=== PATIENT | female | born 1995 | race Caucasian/White ===

== ENCOUNTER 2020-09-20 15:43 | Outpatient (REF) | payer OTHER, MEDICAID, SELFPAY ==
--- NOTE | 2020-09-20 | PFT_ITS ---
Forced vital capacity and FEV1 are normal. [id number] and MVV are also normal. Post bronchodilator therapy, no change except slight decrease in [id number]. Total lung capacity and residual volume normal. Diffusion capacity normal. CONCLUSION: Normal pulmonary function test. No evidence of obstructive or restrictive pulmonary disease. MD RY Jefferson/MODL / [id number]
== END 2020-09-20 15:44 | disposition home or self-care (01) ==
LOC: HO.RESP 15:43
PROVIDERS: PCP Internal Medicine; Visit Provider Internal Medicine
DX: R05 Cough (principal)
CPT/HCPCS: 94060; 94727; 94729

== ENCOUNTER 2020-11-13 10:54 | Outpatient (REF) | payer OTHER, SELFPAY ==
--- NOTE | ~2020-11-13 | XR_ITS ---
EXAMINATION: XR CHEST CLINICAL INFORMATION: Cough. COMPARISON: Chest radiograph dated 06/09/2019. TECHNIQUE: 2 views of the chest were obtained. FINDINGS: The lungs are clear. The cardiomediastinal silhouette is normal in size. There is no pleural effusion or pneumothorax. No acute osseous abnormality. XR/XR chest 2V IMPRESSION: No acute cardiopulmonary findings.
== END 2020-11-13 10:55 | disposition home or self-care (01) ==
LOC: HO.XRAY 10:54
PROVIDERS: PCP Internal Medicine; Visit Provider Internal Medicine
DX: R05 Cough (principal)
CPT/HCPCS: 71046

== ENCOUNTER 2023-06-14 16:52 | Outpatient (REF) | payer OTHER, SELFPAY ==
[2023-06-15 21:19] LABS: C. trachomatis RNA TMA NOT DETECTED (NOT DETECTED); Candida glabrata RNA NOT DETECTED (NOT DETECTED); Candida species RNA NOT DETECTED (NOT DETECTED); N. gonorrhoeae RNA TMA NOT DETECTED (NOT DETECTED); Trichomonas vaginalis RNA NOT DETECTED (NOT DETECTED)
== END 2023-06-14 16:53 | disposition home or self-care (01) ==
LOC: HO.HHCLNP 16:52
PROVIDERS: Visit Provider Advanced Practice Midwife
DX: N89.8 Other specified noninflammatory disorders of vagina (principal)
CPT/HCPCS: 36415; 81513; 87481; 87491; 87591; 87661

== ENCOUNTER 2023-06-29 14:50 | Outpatient (REF) | payer OTHER, SELFPAY ==
--- NOTE | ~2023-06-29 | US_ITS ---
EXAMINATION: US PELVIS CLINICAL INFORMATION: IUD malposition on CAT scan COMPARISON: None available. TECHNIQUE: Ultrasound of the pelvis is performed using both transabdominal and transvaginal transducers along with Doppler. Transvaginal imaging is performed due to inadequate visualization transabdominally. FINDINGS: Uterus: The uterus is anteverted and measures 7.5 x 3.5 x 4.0 cm. An IUD is positioned low in the endometrial canal with most of its length in the cervix. The double wall endometrial thickness is 4 mm. The uterus is smooth in contour and has normal myometrial echogenicity. A small 0.8 cm uterine fibroid is noted Adnexa: Both ovaries are visualized. There is normal color flow to the adnexa. There is no ovarian torsion. There is no pelvic ascites or fluid collection. Right ovary measures 3.3 x 1.9 x 1.8 cm for a volume of 5.9 mL and includes a 1.6 cm cyst with septation. Left ovary measures 3.7 x 2.1 x 2.8 cm for a volume of 11.2 mL which includes a 1.5 cm cyst. US/US pelvic and transvaginal IMPRESSION: 1. IUD is positioned low in the endometrial canal with most of its length in the cervix. 2. Small uterine fibroid. 3. Bilateral benign appearing ovarian cysts. No follow-up is needed.
== END 2023-06-29 14:51 | disposition home or self-care (01) ==
LOC: HO.US 14:50
PROVIDERS: PCP Student in an Organized Health Care Education/Training Program; Visit Provider Advanced Practice Midwife
DX: T83.32XD Displacement of intrauterine contraceptive device, subsequent encounter (principal)
CPT/HCPCS: 76830; 76856

== ENCOUNTER 2023-07-28 14:49 | Outpatient (AMB) | payer OTHER, SELFPAY ==
--- NOTE | 2023-07-28 14:55 | A.OFFVIS_ITS ---
Intake Vital Signs 07/28/23 14:59 Height 5 ft 2 in Weight 145 lb BMI 26.5 BP 93/69 Blood Pressure Location Lt brachial Position Sitting Pulse 78 Pulse Source Pulse Oximeter Pulse Oximetry (%) 99 Oxygen Delivery Method Room Air Intake Visit Reasons: MELENA Vp Home Health Required: Yes Vp Home Health Language: Serbian Information Interpreted: non-clinical & clinical Accompanied by: Self / Same As Patient Allergies No Known Allergies Allergy (Verified 07/28/23 14:55) HPI MELENA HPI Details 27-year-old female with no significant p ast medical history is here today for initial consultation. Patient was sent to us by her PCP. Patient had couple episodes of blood in her stool after having bowel movement. Patient also reports rectal discomfort. Reports to be constipated. Moving her bowels only every couple days. Patient also reports postprandial abdominal bloating. Denies any abdominal pain or discomfort. Denies any tenderness anywhere in her abdomen. Denies any dyspepsia, dysphagia or odynophagia. Patient denies any melena, unintentional weight loss or ribbon like stools. Patient denies any diarrhea. No nausea or vomiting. [facility] Social History (Updated 07/28/23 @ 14:57 by Christy Doherty MA) Household Members: Family Alcohol intake: never Patient Tobacco Use Status: Never used Tobacco Review of Systems Const Denies weight gain and Denies weight loss ENT Reports no additional complaints, Denies dysphagia and Denies odynophagia Card Reports no additional complaints Resp Reports no additional complaints GI Denies abdominal pain, Denies belching, Denies melena, Denies bloating, Denies change in bowel habits, Reports constipation, Denies dysphagia, Denies excessive flatus, Denies dyspepsia, Denies heartburn, Denies diarrhea, Denies loose stools, Reports nausea, Denies odynophagia and Denies vomiting Reports no additional complaints Musc Reports no additional complaints Neuro Reports no additional complaints Psych Reports no additional complaints Endo Reports no additional complaints Physical Exam Vital Signs: Last Vital Signs Pulse 78 07/28/23 14:59 BP 93/69 07/28/23 14:59 Pulse Ox 99 07/28/23 14:59 Oxygen Delivery Method Room Air 07/28/23 14:59 BMI result Body Mass Index 26.5 Const General: healthy appearing, no acute distress and well developed Nutritional Appearance: well nourished Orientation/consciousness: patient oriented x3 Resp Effort & Inspection: normal respiratory effort, able to speak in complete sentences, no tracheal deviation and symmetric chest movement Auscultation: clear to auscultation bilaterally Cardio Rate: regular rate GI Inspection: Yes normal to inspection and No distended Palpation (GI): Soft to palpation, not firm, nontender and No hepatosplenomegaly present Auscultation: normal bowel sounds General: Yes no CVA tenderness Back/Spine/Pelvis Back: no CVA tenderness Skin General skin exam: elasticity normal, turgor normal and dry skin Neuro General: patient oriented x3 Psych Appearance: grossly normal Mental Status: mental status grossly normal Assessment & Plan Assessment & Plan (1) Constipation: Code(s): K59.00 - Constipation, unspecified Qualifiers: Constipation type: slow transit constipation Qualified Code(s): K59.01 - Slow transit constipation (2) Rectal bleed: Code(s): K62.5 - Hemorrhage of anus and rectum Plan Discussed with patient high-fiber diet as well as trying to drink more fluids. Patient can start taking MiraLax daily and take Colace in the evening. Will send script for hemorrhoid cream for her. Patient was encouraged to also try Sitz baths with Epsom salts. Blood work reviewed from her PCP and patient is not anemic. No family history of colorectal cancer. Will see patient in 5 weeks, if she continues to have rectal bleed and rectal discomfort we will send her for colonoscopy. Patient is agreeable to this plan and verbalizes understanding of instructions. She was given the opportunity to ask questions and all questions answered. Thank you for allowing me to participate in her care Medications: New docusate sodium 200 mg (2 x 100 mg) PO BEDTIME 180 caps 3RF K59.00 - Constipation, unspecified polyethylene glycol 3350 (Miralax) 17 grams PO DAILY 510 grams 2RF hydrocortisone 2.5% (Proctosol HC) 1 appl HI BID-QID PRN 30 grams 2RF hemorrhoids K64.9 - Unspecified hemorrhoids Coding Level of Care Code New Pt Level 3 (39647) Diagnoses Slow transit constipation K59.01 Constipation type: slow transit constipation Rectal bleed K62.5 Time Spent (min) 40 Comment 30 minutes spent with patient and additional 10 minutes spent reviewing her records
[2023-07-28 14:59] VITALS: BP 93/69; PULSE 78; O2SAT 99; BMI 26.5
== END 2023-07-28 15:26 | disposition home or self-care (01) ==
PROVIDERS: PCP Student in an Organized Health Care Education/Training Program; Visit Provider Nurse Practitioner Family
DX: K59.01 Slow transit constipation (principal); K62.5 Hemorrhage of anus and rectum
CPT/HCPCS: 99203

== ENCOUNTER → 2023-07-28 14:49 | Outpatient (BNVA) | payer OTHER, SELFPAY | PROVIDERS: PCP Student in an Organized Health Care Education/Training Program; Visit Provider Nurse Practitioner Family | DX: K59.01 Slow transit constipation (principal); K62.5 Hemorrhage of anus and rectum; R14.0 Abdominal distension (gaseous) | CPT/HCPCS: 99202 ==

== ENCOUNTER 2023-08-17 08:32 | Outpatient (REF) | payer OTHER, SELFPAY ==
[2023-08-17 11:34] LABS: MANUAL DIFF FLAG NO
[2023-08-17 11:47] LABS: Basophils Percent Auto 0.6 % (0-2); Eosinophils Absolute Auto 0.2 X10*3/uL (0.0-0.4); Eosinophils Percent Auto 2.7 % (0-4); Hematocrit 36.2 % (37.0-47.0); Hemoglobin 11.6 g/dl (12.0-16.0); Imm Gran Abs Auto 0.01 X10*3/uL (0.00-0.03); Imm Gran Pct Auto 0.1 % (0.0-0.4); Lymphocytes Percent Auto 27.6 % (20-40); Mean Corpuscular Hemoglobin 28.6 pg (27.0-33.0); Mean Corpuscular Volume 89.2 fL (80.0-98.0); Mean Platelet Volume 9.6 fL (9.4-12.3); Monocytes Absolute Auto 0.5 X10*3/uL (0.1-1.2); Monocytes Percent Auto 6.7 % (2-11); Neutrophils Absolute Auto 4.5 x10*3/uL (2.0-8.3); Neutrophils Percent Auto 62.3 % (45-73); Platelet Count 315 X10*3/uL (160-400); Red Blood Count 4.06 X10*6/uL (4.20-5.50); Red Cell Distribution Width 12.9 % (11.0-16.0); White Blood Count 7.2 X10*3/uL (4.8-10.8)
[2023-08-17 13:18] LABS: Free T4 (Free Thyroxine) 0.84 ng/dL (0.71-1.85); Thyroid Stimulating Hormone 5.15 uIU/mL (0.32-4.0)
[2023-08-17 16:48] LABS: Iron 54 mcg/dL (30-160); Percent Iron Saturation 13 % (15-50); Total Iron Binding Capacity 424 mcg/dL (228-428); Unsaturated Iron Binding 370 ug/dL
[2023-08-17 17:06] LABS: Ferritin 6 ng/mL (10-122)
== END 2023-08-17 08:33 | disposition home or self-care (01) ==
LOC: HO.HHCL 08:32
PROVIDERS: Visit Provider Student in an Organized Health Care Education/Training Program
DX: D72.829 Elevated white blood cell count, unspecified (principal); R79.89 Other specified abnormal findings of blood chemistry; D64.9 Anemia, unspecified
CPT/HCPCS: 36415; 82728; 83540; 84439; 84443; 85025

== ENCOUNTER 2023-09-03 15:56 | Outpatient (AMB) | payer OTHER, SELFPAY ==
[2023-09-03 16:06] VITALS: BP 88/53; PULSE 69; BMI 27.4
--- NOTE | 2023-09-03 16:06 | MHC.OFFVIS ---
Vital Signs 09/03/23 16:06 Height 5 ft 2 in Weight 149 lb 14.629 oz BMI 27.4 BP 88/53 L Blood Pressure Location Lt brachial Position Sitting Pulse 69 Intake Visit Reasons: 5 week follow up Intake Note: Patient in office today for follow up of constipation. CC: Patient states that sometimes gets an abdominal pain from RUQ abdomen that travels up to her epigastric region and to her LUQ. Denies other GI symptoms today. Consumer Credit Counselor Required: Yes Accompanied by: Self / Same As Patient Allergies No Known Allergies Allergy (Verified 09/03/23 16:10) HPI HPI 5 week follow up: Details: LAST VISIT: Constipation Rectal bleed Plan Discussed with patient high-fiber diet as well as trying to drink more fluids. Patient can start taking MiraLax daily and take Colace in the evening. Will send script for hemorrhoid cream for her. Patient was encouraged to also try Sitz baths with Epsom salts. Blood work reviewed from her PCP and patient is not anemic. No family history of colorectal cancer. Will see patient in 5 weeks, if she continues to have rectal bleed and rectal discomfort we will send her for colonoscopy. Patient is agreeable to this plan and verbalizes understanding of instructions. She was given the opportunity to ask questions and all questions answered. ? Thank you for allowing me to participate in her care Medications New docusate sodium 200 mg (2 x 100 mg) PO BEDTIME 180 caps 3RF K59.00 polyethylene glycol 3350 (Miralax) 17 grams PO DAILY 510 grams 2RF hydrocortisone 2.5% (Proctosol HC) 1 appl [place] BID-QID PRN 30 grams 2RF hemorrhoids K64.9 TODAY'S VISIT: Patient is here today for follow-up. Patient reports that she has been feeling better and is able to move her bowels. Patient denies any melena, hematochezia, unintentional weight loss or ribbon like stools. Patient however reports right upper quadrant pain postprandially. Occasionally pain troubles to her epigastric area or her left upper quadrant. Patient denies any nausea or vomiting. Denies dyspepsia, dysphagia or odynophagia. [facility] Social History (Updated 07/28/23 @ 14:57 by Christy Doherty MA) Household Members: Family Alcohol intake: never Patient Tobacco Use Status: Never used Tobacco Review of Systems Const Denies weight gain and Denies weight loss ENT Reports no additional complaints, Denies dysphagia and Denies odynophagia Card Reports no additional complaints Resp Reports no additional complaints GI Reports abdominal pain (RUQ), Denies belching, Denies melena, Denies bloating, Denies change in bowel habits, Denies dysphagia, Denies excessive flatus, Denies dyspepsia, Reports heartburn, Denies diarrhea, Denies loose stools, Denies nausea, Denies odynophagia and Denies vomiting Reports no additional complaints Musc Reports no additional complaints Neuro Reports no additional complaints Psych Reports no additional complaints Endo Reports no additional complaints Physical Exam Vital Signs: Last Vital Signs Pulse 69 09/03/23 16:06 BP 88/53 L 09/03/23 16:06 BMI result Body Mass Index 27.4 Const General: healthy appearing, no acute distress and well developed Nutritional Appearance: well nourished Orientation/consciousness: patient oriented x3 Resp Effort & Inspection: normal respiratory effort, able to speak in complete sentences, no tracheal deviation and symmetric chest movement Auscultation: clear to auscultation bilaterally Cardio Rate: regular rate GI Inspection: Yes normal to inspection and No distended Palpation (GI): Soft to palpation, not firm, nontender and No hepatosplenomegaly present Auscultation: normal bowel sounds General: Yes no CVA tenderness Back/Spine/Pelvis Back: no CVA tenderness Skin General skin exam: elasticity normal, turgor normal and dry skin Neuro General: patient oriented x3 Psych Appearance: grossly normal Mental Status: mental status grossly normal Results Reviewed Results Reviewed: Laboratory Tests 08/17/23 08/17/23 08:44 08:47 RBC 4.06 L Hgb 11.6 L Hct 36.2 L MCV 89.2 Iron 54 TIBC 424 % Saturation 13 L Unsat Iron Binding 370 Ferritin 6 L TSH 5.15 H Free T4 0.84 Assessment & Plan Assessment & Plan (1) Constipation: Code(s): K59.00 - Constipation, unspecified Qualifiers: Constipation type: slow transit constipation Qualified Code(s): K59.01 - Slow transit constipation (2) Rectal bleed: Code(s): K62.5 - Hemorrhage of anus and rectum (3) Postprandial epigastric pain: Code(s): R10.13 - Epigastric pain (4) Postprandial abdominal pain in right upper quadrant: Code(s): R10.11 - Right upper quadrant pain (5) Postprandial abdominal bloating: Code(s): R14.0 - Abdominal distension (gaseous) Plan Patient will continue taking Colace and MiraLax. Will check lipase, liver profile, transglutaminase. Patient does report right upper quadrant pain, however negative PE for tenderness, rebound tenderness, Claudio sign. Patient is reporting that the pain radiates sometimes in it feels like it moves from right upper quadrant to epigastric area and sometimes to LUQ. Will send her for ultrasound. Will start patient on omeprazole. Discussed with her avoiding dietary triggers and late night snacking. Staying upright for minimum 3 hours after meals discussed with patient. Patient will return to the office in 2-3 months, sooner on as needed basis. Patient is agreeable to this plan and verbalizes understanding of instructions. She was given the opportunity to ask questions and all questions answered. Thank you for allowing me to participate in her care Orders: Orders US abdomen complete 09/09/23 R10.9 - Unspecified abdominal pain Lipase 09/09/23 R10.9 - Unspecified abdominal pain Liver Panel 09/09/23 R74.01 - Elevation of levels of liver transaminase levels Transglutaminase Ab IgG 09/09/23 R10.9 - Unspecified abdominal pain Transglutaminase IgA 09/09/23 R10.9 - Unspecified abdominal pain Medications: New omeprazole 20 mg PO DAILY 30 caps 3RF K21.9 - Gastro-esophageal reflux disease without esophagitis Coding Level of Care Code Est Pt Level 4 (86385) Diagnoses Slow transit constipation K59.01 Constipation type: slow transit constipation Rectal bleed K62.5 Postprandial epigastric pain R10.13 Postprandial abdominal pain in right upper quadrant R10.11 Postprandial abdominal bloating R14.0 Time Spent (min) 35 Comment 20 minutes spent with patient and additional 15 minutes spent reviewing her records
== END 2023-09-03 16:52 | disposition home or self-care (01) ==
PROVIDERS: PCP Student in an Organized Health Care Education/Training Program; Visit Provider Nurse Practitioner Family
DX: K59.01 Slow transit constipation (principal); K62.5 Hemorrhage of anus and rectum; R10.13 Epigastric pain; R10.11 Right upper quadrant pain; R14.0 Abdominal distension (gaseous)
CPT/HCPCS: 99214

== ENCOUNTER → 2023-09-03 15:56 | Outpatient (BNVA) | payer OTHER, SELFPAY | PROVIDERS: PCP Student in an Organized Health Care Education/Training Program; Visit Provider Nurse Practitioner Family | DX: K59.01 Slow transit constipation (principal); K62.5 Hemorrhage of anus and rectum; R10.13 Epigastric pain; R10.11 Right upper quadrant pain; R14.0 Abdominal distension (gaseous); Z79.899 Other long term (current) drug therapy | CPT/HCPCS: 99212 ==

== ENCOUNTER 2023-09-09 07:55 | Outpatient (REF) | payer OTHER, SELFPAY ==
--- NOTE | ~2023-09-09 | US_ITS ---
EXAMINATION: US ABDOMEN COMPLETE CLINICAL INFORMATION: Abdominal pain. COMPARISON: None available. TECHNIQUE: Real-time imaging of the abdominal viscera. Slightly limited study due to body habitus. FINDINGS: PANCREAS: The pancreas is not well seen due to bowel gas. ABDOMINAL AORTA: The proximal and distal segments are normal in caliber. The mid abdominal aorta is obscured by bowel gas. INFERIOR VENA CAVA: Visualized portions are normal. LIVER: Normal. The liver is normal in size. The liver contour is normal. Parenchymal echogenicity is normal. No focal hepatic lesion. There is no intrahepatic biliary duct dilatation seen. GALLBLADDER: Normal. The gallbladder is physiologically distended without evidence of stones, sludge, polyps, wall thickening or pericholecystic fluid. No sonographic Claudio's sign. COMMON BILE DUCT: Normal in caliber measuring 0.4 cm in diameter. RIGHT KIDNEY: Normal. No hydronephrosis. No renal calculi or focal parenchymal lesions. The kidney measures 9.5 cm in maximum dimension. LEFT KIDNEY: Normal. No hydronephrosis. No renal calculi or focal parenchymal lesions. The kidney measures 9.8 cm in maximum dimension. SPLEEN: Normal. The spleen measures 10.4 cm in maximum dimension. FREE FLUID: None. US/US abdomen complete IMPRESSION: 1. No abnormality demonstrated. 2. The pancreas and mid abdominal aorta are obscured by bowel gas.
[2023-09-09 09:39] LABS: Alanine Aminotransferase 32 U/L (0-31); Albumin Level 4.2 g/dL (3.5-5.0); Alkaline Phosphatase 83 U/L (39-117); Aspartate Amino Transferase 20 U/L (5-31); Bilirubin Direct 0.1 mg/dL (0.0-0.5); Bilirubin Total 0.3 mg/dL (0.0-1.0); Lipase 31 U/L (8-78); Total Protein 7.4 g/dL (6.5-8.0)
[2023-09-10 22:43] LABS: Transglutaminase Ab IgG <1.0 U/mL; Transglutaminase IgA <1.0 U/mL
== END 2023-09-09 07:56 | disposition home or self-care (01) ==
LOC: HO.US 07:55
PROVIDERS: PCP Student in an Organized Health Care Education/Training Program; Visit Provider Nurse Practitioner Family
DX: R10.9 Unspecified abdominal pain (principal); R74.01 Elevation of levels of liver transaminase levels
CPT/HCPCS: 36415; 76700; 80076; 83690; 86364

== ENCOUNTER 2023-12-07 09:00 | Outpatient (RCR) | payer OTHER, SELFPAY ==
[2023-09-30 17:04] VITALS: BP 108/69
== END 2024-02-07 12:35 | disposition home or self-care (01) ==
LOC: HO.PT 09:00
PROVIDERS: PCP Student in an Organized Health Care Education/Training Program; Visit Provider Student in an Organized Health Care Education/Training Program
DX: H81.10 Benign paroxysmal vertigo, unspecified ear (principal)
CPT/HCPCS: 97110; 97112; 97161; 97530

== ENCOUNTER 2024-02-28 15:56 | Outpatient (AMB) | payer OTHER, SELFPAY ==
[2024-02-28 15:57] VITALS: BP 122/80; PULSE 72; O2SAT 100; BMI 27.0
--- NOTE | 2024-02-28 15:57 | A.OFFVIS_ITS ---
Vital Signs 02/28/24 15:57 Height 5 ft 2 in Weight 147 lb 11.355 oz BMI 27.0 BP 122/80 Blood Pressure Location Rt brachial Position Sitting Pulse 72 Pulse Source Pulse Oximeter Pulse Oximetry (%) 100 Oxygen Delivery Method Room Air Intake Visit Reasons: 3 months follow up Intake Note: Relevant Flags or Indicators ? Requires Senior Hr Business Partner? Linda Schaeffer presents in office today for a scheduled ~6 mos FUV. CC; US done, omeprazole rx'd, labs done. Relevant GI Sx as reported per pt? Pt still taking omeprazole and still feels that their sx are well controlled. Pt does want to discuss the intermediate implications of the medication as well as a few assorted nutritional questions. ? Hx of any recent surgeries? None Senior Hr Business Partner Required: Yes Senior Hr Business Partner Services: Senior Hr Business Partner Present Senior Hr Business Partner Name: [id number] Paredes Information Interpreted: non-clinical & clinical Accompanied by: Self / Same As Patient Allergies No Known Allergies Allergy (Verified 02/28/24 15:58) HPI HPI 3 months follow up: Details: LAST VISIT: Constipation Rectal bleed Postprandial epigastric pain Postprandial abdominal pain in right upper quadrant Postprandial abdominal bloating Plan Patient will continue taking Colace and MiraLax. Will check lipase, liver profile, transglutaminase. Patient does report right upper quadrant pain, however negative PE for tenderness, rebound tenderness, Claudio sign. Patient is reporting that the pain radiates sometimes in it feels like it moves from right upper quadrant to epigastric area and sometimes to LUQ. Will send her for ultrasound. Will start patient on omeprazole. Discussed with her avoiding dietary triggers and late night snacking. Staying upright for minimum 3 hours after meals discussed with patient. Patient will return to the office in 2-3 months, sooner on as needed basis. Patient is agreeable to this plan and verbalizes understanding of instructions. She was given the opportunity to ask questions and all questions answered. ? Thank you for allowing me to participate in her care Orders Orders US abdomen complete 09/09/23 R10.9 Lipase 09/09/23 R10.9 Liver Panel 09/09/23 R74.01 Transglutaminase Ab IgG 09/09/23 R10.9 Transglutaminase IgA 09/09/23 R10.9 Medications New omeprazole 20 mg PO DAILY 30 caps 3RF K21.9 TODAY'S VISIT: Patient is here today for follow-up and to discuss lab and ultrasound results. Patient reports that she is feeling significantly better since last visit. Ultrasound results discussed with patient normal. No acute processes found. Normal liver. All lab work also came back normal. Patient states that she tries to avoid certain dietary triggers and has low FODMAP diet recommendations at home. Patient does want to change her diet. Avoids eating late at night. Denies melena, hematochezia, unintentional weight loss or ribbon like stools. No longer has blood in her stool, however couple episodes when she had bowel movement and had to push. Patient reports that she normally is moving her bowels well without any issues. Patient denies any dyspepsia, dysphagia or odynophagia. [facility] Social History Household Members: Family Alcohol intake: never Patient Tobacco Use Status: Never used Tobacco Review of Systems Const Denies weight gain and Denies weight loss ENT Reports no additional complaints, Denies dysphagia and Denies odynophagia Card Reports no additional complaints Resp Reports no additional complaints GI Denies abdominal pain, Denies belching, Denies melena, Denies bloating, Denies change in bowel habits, Denies dysphagia, Denies excessive flatus, Denies dyspepsia, Denies heartburn, Denies diarrhea, Denies loose stools, Denies nausea, Denies odynophagia and Denies vomiting Musc Reports no additional complaints Neuro Reports no additional complaints Psych Reports no additional complaints Endo Reports no additional complaints Physical Exam Vital Signs: Last Vital Signs Pulse 72 02/28/24 15:57 BP 122/80 02/28/24 15:57 Pulse Ox 100 02/28/24 15:57 Oxygen Delivery Method Room Air 02/28/24 15:57 BMI result Body Mass Index 27.0 Const General: healthy appearing, no acute distress and well developed Nutritional Appearance: well nourished Orientation/consciousness: patient oriented x3 Resp Effort & Inspection: normal respiratory effort, able to speak in complete sentences, no tracheal deviation and symmetric chest movement Auscultation: clear to auscultation bilaterally Cardio Rate: regular rate GI Inspection: Yes normal to inspection and No distended Palpation (GI): Soft to palpation, not firm, nontender and No hepatosplenomegaly present Auscultation: normal bowel sounds General: Yes no CVA tenderness Back/Spine/Pelvis Back: no CVA tenderness Skin General skin exam: elasticity normal, turgor normal and dry skin Neuro General: patient oriented x3 Psych Appearance: grossly normal Mental Status: mental status grossly normal Results Reviewed Results Reviewed: ABDOMINAL US, FINDINGS: PANCREAS: The pancreas is not well seen due to bowel gas. ABDOMINAL AORTA: The proximal and distal segments are normal in caliber. The mid abdominal aorta is obscured by bowel gas. INFERIOR VENA CAVA: Visualized portions are normal. LIVER: Normal. The liver is normal in size. The liver contour is normal. Parenchymal echogenicity is normal. No focal hepatic lesion. There is no intrahepatic biliary duct dilatation seen. GALLBLADDER: Normal. The gallbladder is physiologically distended without evidence of stones, sludge, polyps, wall thickening or pericholecystic fluid. No sonographic Claudio's sign. COMMON BILE DUCT: Normal in caliber measuring 0.4 cm in diameter. RIGHT KIDNEY: Normal. No hydronephrosis. No renal calculi or focal parenchymal lesions. The kidney measures 9.5 cm in maximum dimension. LEFT KIDNEY: Normal. No hydronephrosis. No renal calculi or focal parenchymal lesions. The kidney measures 9.8 cm in maximum dimension. SPLEEN: Normal. The spleen measures 10.4 cm in maximum dimension. FREE FLUID: None. US/US abdomen complete IMPRESSION: 1. No abnormality demonstrated. 2. The pancreas and mid abdominal aorta are obscured by bowel gas. Laboratory Tests 09/09/23 08:49 Total Bilirubin 0.3 Direct Bilirubin 0.1 ALT 32 H Alkaline Phosphatase 83 Total Protein 7.4 Lipase 31 Tiss Transglutamin IgG <1.0 Tiss Transglutamin IgA <1.0 Assessment & Plan Assessment & Plan (1) Constipation: Code(s): K59.00 - Constipation, unspecified Qualifiers: Constipation type: slow transit constipation Qualified Code(s): K59.01 - Slow transit constipation (2) Rectal bleed: Code(s): K62.5 - Hemorrhage of anus and rectum (3) Postprandial epigastric pain: Code(s): R10.13 - Epigastric pain (4) Postprandial abdominal pain in right upper quadrant: Code(s): R10.11 - Right upper quadrant pain (5) Postprandial abdominal bloating: Code(s): R14.0 - Abdominal distension (gaseous) Plan Patient will continue omeprazole for now. May take probiotics daily. Increase fluid intake and activity to promote better bowel motility. Low FODMAP diet discussed with patient follow-up recommendations and avoid food that is not recommended per list that she has at home. Patient was instructed that she may try to stop omeprazole however he and stop abruptly and try to do it every other day then decreasing till no longer she will be taking it daily, however if she will have symptoms and they will return is to call our office and she can restart the omeprazole then. Patient will follow-up in our office in 6 months, she will call if she will have any GI concerning symptoms. She is agreeable to this plan and verbalizes understanding of instructions. She was given the opportunity to ask questions and all questions answered. Thank you for allowing me to participate in her care Coding Level of Care Code Est Pt Level 4 (56459) Diagnoses Slow transit constipation K59.01 Constipation type: slow transit constipation Rectal bleed K62.5 Postprandial epigastric pain R10.13 Postprandial abdominal pain in right upper quadrant R10.11 Postprandial abdominal bloating R14.0 Time Spent (min) 35 Comment 20 minutes spent with patient and additional 15 minutes spent reviewing her records
== END 2024-02-28 17:00 | disposition home or self-care (01) ==
LOC: HO.HGI 15:56
PROVIDERS: PCP Student in an Organized Health Care Education/Training Program; Visit Provider Nurse Practitioner Family
DX: K59.01 Slow transit constipation (principal); K62.5 Hemorrhage of anus and rectum; R10.13 Epigastric pain; R10.11 Right upper quadrant pain; R14.0 Abdominal distension (gaseous)
CPT/HCPCS: 99214

== ENCOUNTER → 2024-02-28 15:56 | Outpatient (BNVA) | payer OTHER, SELFPAY | PROVIDERS: PCP Student in an Organized Health Care Education/Training Program; Visit Provider Nurse Practitioner Family | DX: K59.01 Slow transit constipation (principal); K62.5 Hemorrhage of anus and rectum; R10.11 Right upper quadrant pain; R10.13 Epigastric pain; R14.0 Abdominal distension (gaseous) | CPT/HCPCS: 99212 ==

== ENCOUNTER 2024-03-09 | Outpatient (REF) | payer OTHER, SELFPAY ==
[2024-03-10 12:38] LABS: HPV 16,18/45 See PAP report
== END 2024-03-09 00:01 | disposition home or self-care (01) ==
LOC: HO.LNP
PROVIDERS: Visit Provider Advanced Practice Midwife
DX: Z12.4 Encounter for screening for malignant neoplasm of cervix (principal); Z11.51 Encounter for screening for human papillomavirus (HPV)
CPT/HCPCS: 87624; 88175

== ENCOUNTER 2024-08-03 08:35 | Outpatient (REF) | payer OTHER, SELFPAY ==
--- OUTSIDE RECORDS SUMMARY | 2024-08-03 08:46 | XMS_ITS | Clinical Summary ---
Author Organization [employer] Address [address] [place] [address] 7 [place] [address] Care Team Providers Care Protector Plate Attacher Name Role Phone Olena Ramsay MD Primary Care Pro vider Allergies Active Allergy Reactions Criticality Noted Date Comments Apple Fruit Extract 06/14/2024 Apple Juice Itching Low 02/03/2021 Other reaction(s): Unknown [place] Flavoring Agent (Non-Screening) Itching 10/07/2022 Prunus Persica Low 05/16/2023 Other reaction(s): Unknown Medications Sod Fluoride-Potass ium Nitrate 1.1-5 % pasteIndication s:Dental caries [place] teeth for 2 minutes, morning and night. Spit, do not rinse. Do not eat or drink anything for 30 minutes following brushing. 112 g 3 4 Active Additional Information Patient not taking.Reported on 11/26/2023 ulipristal (Allison) 30 mg tablet Take one tablet by mouth up to five days after sex. Do not use more than once per menstrual cycle. If repeat dose is needed in same cycle, please contact prescriber. 1 tablet 11 4 Active Additional Information Patient not taking.Reported on 11/26/2023 omeprazole (PriLOSEC) [address] capsule TOME 1 C PSULA POR V A ORAL TODOS LOS D 4 Active hydrocortisone (Anusol-HC) 2.5 % rectal cream APLIQUE RECTALLY TO HEMORRHOIDS 2 TO 4 TIMES A DAY NEEDED 4 Active docusate sodium (Colace) 100 MG capsule TOME 2 C PSULAS POR V A ORAL TODOS LOS D AL ACOSTARSE Active Ascorbic Acid (vitamin C) 250 MG tablet Take 1 tablet (250 mg) by mouth every other day. 40 tablet 4 01/24/20 25 Active ferrous gluconate (Fergon) 324 (38 Fe) MG tablet Take 1 tablet (324 mg) by mouth every other day. 40 tablet 4 01/24/20 25 Active ibuprofen 600 MG tablet Take 1 tablet (600 mg) by mouth 3 times daily for 10 days. 30 tablet 5 08/13/19 25 Active amoxicillin (Amoxil) 500 MG capsule Take 1 capsule (500 mg) by mouth every 8 (eight) hours for 7 days. 21 capsule 5 08/10/19 25 Active Active Problems Problem Noted Date Diagnosed Date Hematochezia 06/28/2023 S/P laparoscopic appendectomy 05/25/2023 Chronic lower back pain 11/05/2022 Assessment & Plan (11/05/2022 7:05 PM EDT): Reports chronic -sporadic lower back pain radiated to right buttock w normal neuro exam today and no neuro concerning symptoms -advised tylenol prn and warm compresses when having pain -NSAIDS x mod pain -referred to PT today Health care maintenance 10/07/2022 Assessment & Plan (11/05/2022 7:07 PM EDT): -pap smear 03/2021:( here ) :neg--> to repeat from record in 3 y -vaccines: s/p tdap 2018,s/p covid 19 x2 and Bivalentx1, MMRx1,pt denies hx of HPV---advised pt to go to vaccine clinic -pt interested in vaccination. Hep B not immune -to start series today ---- -10/2022 Noted WBC elevated at 11K at recent labs w no signs of infection -will monitor CBC ordered today -pt will repeat test in 3 weeks and will call if abnormal results as well to fo ch/gn screening urine ordered before but not done -will call pt abnormal result -referred today to metal coater Assessment & Plan (10/07/2022 5:30 PM EDT): -pap smear 03/2021:( here ) :neg--> to repeat from record in 3 y -vaccines: s/p tdap 2019,s/p covid 19 x2--today here to get Bivalent, MMRx1,pt denies hx of HPV---advised pt to go to vaccine clinic -pt interested in vaccination. -labs x annual exam today-not in fasting -pt agreed to have STI testing including HIV to have for baseline --LMP: 08/26/2022 --then spotting on 08/2022 -pt has IUD ---neg preg urine test here today ---> if ongoing irreg to f w her DAY TREATMENT CLINICIAN/ART THERAPIST -TV/pelvic US 05/2022: There are some myometrial changes suggestive of adenomyosis. The right ovary contains a cyst as with apparent suggestive of a corpus luteal cyst. ---> pt w her DAY TREATMENT CLINICIAN/ART THERAPIST x this Overweight (BMI 25.0-29.9) 10/07/2022 Assessment & Plan (11/05/2022 7:02 PM EDT): Advised pt to improve diet and exercise,discussed healthy life style -discussed sheet metal apprentice referral -wants to hold on referral x now Assessment & Plan (10/07/2022 5:23 PM EDT): Advised pt to improve diet and exercise,discussed healthy life style -discussed sheet metal apprentice referral -wants to hold on referral x now BPPV (benign paroxysmal positional vertigo) 10/2022 Assessment & Plan (11/05/2022 7:04 PM EDT): Pt clinically and from exam w BPPV w normal neuro exam and Granville-Hallpike maneuver is casing vertigo but no nystagmus ,normal ear exam at previous visit Reports only sporadic vertigo -now stable -advised to continue home head exercises -ok to continue benadryl prn that helped before -has refills at home -will continue to monitor but if symptoms are too frequent will refer to ENT x further eval Assessment & Plan (10/07/2022 5:25 PM EDT): Pt clinically and from exam w BPPV w normal neuro exam and Mickey-Hallpike maneuver is casing vertigo but no nystagmus ,normal ear exam -advised to continue home head exercises -ok to continue benadryl prn that helped before -has refills at home -will continue to monitor but if symptoms are too frequent will refer to ENT x further eval Raised TSH level 01/01/2017 Assessment & Plan (11/05/2022 7:03 PM EDT): 10/2022 TSH 5.20 w normal T4 -will repeat TFT in 6 months Assessment & Plan (10/07/2022 5:24 PM EDT): -will check TSH and T4 today Resolved Problems Problem Noted Date Diagnosed Date Resolved Date Leukocytosis 06/28/2023 08/21/2023 Encounters Date Type Department Care Team Description 08/02/2024 8:00 AM EDT Office Visit [facility] ADULT DENTAL [address] [place] [address] Alyson Marcano DDS 07/31/[address] [address] Olena Ramsay MD chart prep 07/28/2024 Patient Outreach [address] [address] Olena Ramsay MD Pre-visit Planning (SDOH screening was completed on 05/29/2024) 07/10/2024 Telephone [facility] ADULT DENTAL [address] [place] [address] Alyson Marcano DDS 07/10/2024 Telephone [facility] ADULT DENTAL [address] [place] [address] Alyson Marcano DDS Possible PA denial wisdom teeth ext 06/27/2024 Telephone [facility] ADULT DENTAL [address] [place] [address] Odell Link DMD appt for OS 06/14/2024 3:15 PM EST Office Visit [facility] ADULT DENTAL [address] [place] [address] Marcano, Alyson, DDS 06/08/2024 Telephone [facility] MEDICINE [address] [place], [place] [phone] Wendy Aviles MA chart prep 06/08/2024 Telephone [facility] MEDICINE [address] [place], [place] [phone] Wendy Aviles MA chart prep 05/29/2024 Patient Outreach [facility] [address] [place], [place] [phone] Olena Ramsay MD Pre-visit Planning (SDOH screening negative and Tobacco screening negative) from Last 3 Months Immunizations Name Administration Dates Next Due HPV 9-Valent 06/16/2023,01/25/2023,11/26/2022 Hep B, adult 05/10/2023,12/07/2022,11/05/2022 Influenza injectable quadriv alent preservative free 02/26/2021 Influenza, seasonal, injecta ble, preservative free 01/24/2024 MMR 10/13/2016 Pfizer Covid-19 Vaccine 12+ Bivalent 10/07/2022 Tdap 06/22/2018 Social History Tobacco Use Types Packs/Day Years Used Date Smoking Tobacco: Never Passive Smoke Exposure: Never Smokeless Tobacco: Never Tobacco Cessation:Counseling Given: Not Answered Alcohol Use Standard Drinks/Week Comments Not Currently 0 (1 standard drink = 0.6 oz pur e alcohol) Depression Answer Date Recorded Patient Health Questionnaire-9 Score 0 01/24/2024 Patient Health Questionnaire-9 Score 0 01/24/2024 Last PHQ-9: Questionnaire Data Not on file 0 01/24/2024 Housing Stability Answer Date Recorded What is your housing situation today? I have triston bah 11/11/[address] you li ve. Do you have problems with any of the following? None of the above 11/11/2023 Food Insecurity Answer Date Recorded Within the past 12 months, y ou worried that your food would run out before you got money to buy more: Never True 11/11/2023 Within the past 12 months,th e food you bought just didn't last and you didn't have enough money to get more: Never True 03/2024 Transportation Answer Date Recorded In the past 12 months, has l ack of transportation kept you from medical appts, meetings, work or from getting things needed for daily living? No 11/11/2023 Utilities Answer Date Recorded In the past 12 months, has t he electric, gas, oil or water company threatened to shut off services in your home? No 11/11/2023 Depression Answer Date Recorded Patient Health Questionnaire-2 Score 0 01/24/2024 Internet Access Answer Date Recorded Internet Access Q1 Yes 01/03/2024 Internet Access Q2 Not on file 01/03/2024 Comments No Sex and Gender Information Value Date Recorded Sex Assigned at Female 03/02/2022 10:27 AM EDT Legal Sex Female 10:27 AM EDT Gender Identity Female 03/02/2022 10:27 AM EDT Sexual Orientation Straight 03/02/2022 10 :27 AM EDT Last Filed Vital Signs Vital Sign Reading Time Taken Comments Blood Pressure 116/80 08/02/2024 8:06 AM EDT Pulse 65 03/09/2024 9:43 AM EST Temperature 36.3 ??C (97.4 ??F) 03/09/2024 9:43 AM ES T Respiratory Rate 20 03/09/2024 9:43 AM EST Oxygen Saturation 100% 03/09/2024 9:43 AM EST Inhaled Oxygen Concentration - - Weight 67.1 kg (148 lb) 03/09/2024 9:43 AM EST Height 154.9 cm (5' 1 ) 03/09/2024 9:43 AM EST Body Mass Index 27.96 03/09/2024 9:43 AM EST Plan of Treatment Upcoming Encounters Date Type Department Care Team (Late st Contact Info) Description 08/07/2024 3:00 PM EDT Office Visit [facility] OPTOMETRY [address] [place] [address] Dana Michelle, OD [address] [place] [address] 08/09/2024 2:45 PM EDT Office Visit [facility] MEDICINE [address] [place] [address] Olena Ramsay MD [address] [place] [address] 08/10/2024 10:00 AM EDT Office Visit [facility] ADULT DENTAL [address] [place] [address] Leydi Harrington Health Maintenance Due Date Last Done Comments Alcohol/Substance Use Screening 2005 Dental Oral Exam 12/10/2023 06/10/2023, , 03/02/2017, Additional history exists Dental Prophylaxis 12/10/2023 06/10/2023, 0 09/26/2020, 06/08/2019, Additional history exists COVID-19 Vaccine ( season) 2024 10/07/2022, 10/24/2020, 10/03/2020 Dental X-Ray: Bitewings 06/11/2024 06/10/19 24, 09/26/2020, 03/10/2019, Additional history exists Depression Screening 01/23/2025 01/24/2024, 01/24/20 Family Planning (PISQ) 03/09/2025 03/09/2024 SDOH Screening 05/29/2025 05/29/2024 Tobacco Screening 08/02/2025 08/02/2024 Dental X-Ray: Full Mouth 06/11/2026 024, 02/25/2023, 03/10/2019, Additional history exists DTaP/Tdap/Td Vaccines (2 - Td or Tdap) 06/22/2028 06/22/2018 Cervical Cancer Screening 03/09/2029 HPV/Cotest 03/09/2029 Pap Smear 03/09/2029 03/09/2024, 03/05/2021 Zoster Vaccines (1 of 2) 12/03/2043 RSV Patients and Patients Aged 60 years or older (1 - 1-dose 75+ series) 2068 HIV Screening Completed 10/07/2022, 04/10/2019 Hepatitis C Screening Completed 10/07/2022, 019 Hepatitis B Vaccines Completed 05/10/2023, 12/07/2022, 11/05/2022 HPV Vaccines Completed 06/16/2023, 01/02, 11/26/2022 Influenza Vaccine Completed 01/24/2024, 02/26/2021 HIB Vaccines Aged Out No longer eligi ble based on patient's age to complete this topic Hepatitis A Vaccines Aged Out No long er eligible based on patient's age to complete this topic IPV Vaccines Aged Out No longer eligi ble based on patient's age to complete this topic Meningococcal Vaccine Aged Out No tristian debbie eligible based on patient's age to complete this topic Pneumococcal Vaccine: Pediatrics (0 to 5 Years) and At-Risk Patients (6 to 49) Years) Aged Out No longer eligible based on patient's age to complete this topic RSV under 20 months Aged Out No longe r eligible based on patient's age to complete this topic Rotavirus Vaccines Aged Out No longer eligible based on patient's age to complete this topic Procedures Procedure Name Priority Date/Time Associated Diagnosis Comments 1 EXTRACTION, ERUPTED TOOTH OR EXPOSED ROOT (ELEVATION/FORCEPS REMOVAL) Routine 08/02/2024 8:00 AM EDT 16 REMOVAL OF IMPACTED TOOTH - SOFT TISSUE Routine 08/02/2024 8:00 AM EDT CONSULTATION - DIAGNOSTIC SERVICE PROVIDED BY DENTIST OR PHYSICIAN OTHER THAN REQUESTING DENTIST OR PHYSICIAN Routine 06/14/2024 3:15 PM EST PAP SMEAR Routine 03/09/2024 12:00 AM EST Cervical cancer screening PROPHYLAXIS - ADULT Routine 06/10/2023 2 :30 PM EST Dental caries Gingivitis INTRAORAL - COMPLETE SERIES OF RADIOGRAPHIC IMAGES Routine 06/10/2023 2:30 PM EST Dental caries Gingivitis PERIODIC ORAL EVALUATION - ESTABLISHED PATIENT Routine 06/10/2023 2:30 PM EST Dental caries Gingivitis HEPATITIS C AB W/REFL TO HCV RNA, QN, PCR Routine 10/07/2022 3:02 PM EDT Health care maintenance HIV 1/2 ANTIGEN/ANTIBODY, FOURTH GENERATION W/RFL Routine 10/07/2022 3:02 PM EDT Health care maintenance from Last 3 Months or Most Recently Relevant to Health Maintenance Results * Pap Smear (03/09/2024 12:00 AM EST) Swab Cervix uteri structure / Unknown 03/09/2024 03/10/2024 10:20 AM EST Narrative [facility] - 03/14/2024 10:28 AM EST ----- ------- Name: Laury Zapata ?Age/Sex: 28/F ? : 1995 Unit#: [id number] ?? Attend Dr: ?Re03/09/24 ?Status: PRE REF ? Location: HO.LNP ?Disch: ? ----- ------- SPEC : [id number] ?RECD: 03/10/24-0 ? STATUS: ??SOUT ? REQ NUM: [id number] ? ALISSA: 03/09/24-0000 ? SUBM DR: BEE LAWRENCE CNM ? ENTERED: ??03/10/24-1024 ?SP TYPE: Pap Smr ?OTHR : ? ORDERED: ??Pap Smear ? Interpretation ?? Satisfactory for evaluation. ?? Negative for intraepithelial lesion or malignancy. ?? Mild inflammation. ?? No endocervical cells seen. ? HPV High Risk: ??Negative ? HPV Genotyping 16: ??Negative ?? HPV Genotyping 18: ??Negative ?Clinical Information LMP: 02/04/2024 Previous PAP test: 2020, WNL ? Material Received ?? ThinPrep-Cervical ----- ------- Signed (signature on file) HERNESTO Trejo (ASCP) 03/14/24 1028 ? ----- ------- ? END OF REPORT ? Bee Lawrence CN LAB CYTOLOGY ORDERABLES F inal Result [facility] [address] [place] [address] [phone] * Hepatitis C Antibody with Reflex to HCV, RNA, Quantitative, Real-Time PCR (10/07/2022 3:02 PM EDT) Pathologist [facility] Hepatitis C Antibody NON-REACT GEORGI NON-REACT GEORGI [employer] Index 0.10 <1.00 [employer] Comment: HCV antibody was non-reactive. There is no laboratory evidence of HCV infection. In most cases, no further action is required. However, if recent HCV exposure is suspected, a test for HCV RNA (test code 00759) is suggested. For additional information please refer to http://education.OrthoFi/faq/KOP73n1 (This link is being provided for informational/ educational purposes only.) Blood Venous blood specimen / Unknown 10/07/2022 3:02 PM EDT 10/07/2022 3:02 PM EDT Narrative [facility] - 10/11/2022 5:14 PM EDT FASTING:NO PATIENT UNABLE TO VOID; ADVISED TO RETURN FOR COLLECTION. FASTING: NO Olena Jorge MD LAB BLOOD ORDERAB LES Final Result [facility] [address] [facility], [place] [address] [employer] [address] [place] [address] * HIV-1/2 Antigen and Antibodies, Fourth Generation, with Reflexes (10/07/2022 3:02 PM EDT) Pathologist [facility] HIV Antigen/Antibody, 4th Generation NON-REAC TIVE NON-REAC TIVE [employer] Comment: HIV-1 antigen and HIV-1/HIV-2 antibodies were not detected. There is no laboratory evidence of HIV infection. PLEASE NOTE: This information has been disclosed to you from records whose confidentiality may be protected by state law. ??If your state requires such protection, then the state law prohibits you from making any further disclosure of the information without the specific written consent of the person to whom it pertains, or as otherwise permitted by law. A general authorization for the release of medical or other information is NOT sufficient for this purpose. ?? For additional information please refer to http://education.OrthoFi/faq/DMZ023 (This link is being provided for informational/ educational purposes only.) The performance of this assay has not been clinically validated in patients less than 2 years old. Blood Venous blood specimen / Unknown 10/07/2022 3:02 PM EDT 10/07/2022 3:02 PM EDT Narrative [facility] - 10/11/2022 5:14 PM EDT FASTING:NO PATIENT UNABLE TO VOID; ADVISED TO RETURN FOR COLLECTION. FASTING: NO Olena Jorge MD LAB BLOOD ORDERAB LES Final Result [facility] [address] [place] [address] [employer] [facility] [address] [place] [address] from Last 3 Months or Most Recently Relevant to Health Maintenance Insurance [facility] [place] [address] DENTAL-[facility] MEDICAID LIMITED ADULT DENTAL - HSN FULL (MEDICAID) Care Teams Protector Plate Attacher Relationship Specialty Start Date End Date Olena Ramsay MD [address] [place] [address] [phone] PCP - General Internal Medicine 10/07/22
--- OUTSIDE RECORDS SUMMARY | 2024-08-03 08:46 | XMS_ITS | Encounter Summary ---
Author Organization [employer] Address [address] [place] [address] [address] [place] [address] Care Team Providers Care Sound Tester Name Role Phone Alexi Self MD Primary Care Provider Olena Buitrago MD Primary Care Pro vider Encounter Details Date Type Department Care Team (Latest Contact Info) Description 06/08/2019 Abstract [facility] CONVERSIONS Dental, Provider, DDS Social History Tobacco Use Types Packs/Day Years Used Date Smoking Tobacco: Never Assessed Comments Unknown Sex and Gender Information Value Date Recorded Sex Assigned at Female 03/02/2022 10:27 AM EDT Legal Sex Female 10:27 AM EDT Gender Identity Female 03/02/2022 10:27 AM EDT Sexual Orientation Straight 03/02/2022 10 :27 AM EDT documented as of this encounter Plan of Treatment Upcoming Encounters Date Type Department Care Team (Late st Contact Info) Description 08/07/2024 3:00 PM EDT Office Visit [facility] OPTOMETRY [address] [place] [address] Dana Michelle, OD [address] [place] [address] 08/09/2024 2:45 PM EDT Office Visit [facility] MEDICINE [address] [place] [address] Olena Ramsay MD [address] [place], [place] [phone] 08/10/2024 10:00 AM EDT Office Visit [facility] ADULT DENTAL [address] [place] [address] Leydi Harrington documented as of this encounter Visit Diagnoses Not on filedocumented in this encounter Care Teams Sound Tester Relationship Specialty Start Date End Date Alexi Self MD PCP - General Family Medicine 10/20/19 10/06/22 Olena Ramsay MD [address] [place] [address] PCP - General Internal Medicine 10/07/22 documented as of this encounter
--- OUTSIDE RECORDS SUMMARY | 2024-08-03 08:46 | XMS_ITS | Encounter Summary ---
Author Organization [employer] Address [address] [place] [address] [place] [address] Care Team Providers Care Advertising Solicitor Name Role Phone Olena Ramsay MD Primary Care Pro vider Reason for Visit * Reason Onset Date Comments Results 06/08/2023 Encounter Details Date Type Department Care Team ([facility] st Contact Info) Description 06/08/2023 Telephone [facility] MEDICINE [address] [place], [place] [phone] Olena Ramsay MD [address] [place] [address] Results Social History Tobacco Use Types Packs/Day Years Used Date Smoking Tobacco: Never Passive Smoke Exposure: Never Smokeless Tobacco: Never Alcohol Use Standard Drinks/Week Comments Not Currently 0 (1 standard drink = 0.6 oz pur e alcohol) Depression Answer Date Recorded Patient Health Questionnaire-9 Score 1 10/07/2022 Housing Stability Answer Date Recorded What is your housing situation today? I have triston bah 02/25/[address] you li ve. Do you have problems with any of the following? None of the above 02/25/2023 Food Insecurity Answer Date Recorded Within the past 12 months, y ou worried that your food would run out before you got money to buy more: Never True 02/25/2023 Within the past 12 months,th e food you bought just didn't last and you didn't have enough money to get more: Never True Transportation Answer Date Recorded In the past 12 months, has l ack of transportation kept you from medical appts, meetings, work or from getting things needed for daily living? No 02/25/2023 Utilities Answer Date Recorded In the past 12 months, has t he electric, gas, oil or water company threatened to shut off services in your home? No 02/25/2023 Depression Answer Date Recorded Patient Health Questionnaire-2 Score 0 10/07/2022 Comments Unknown Sex and Gender Information Value Date Recorded Sex Assigned at Female 03/02/2022 10:27 AM EDT Legal Sex Female 10:27 AM EDT Gender Identity Female 03/02/2022 10:27 AM EDT Sexual Orientation Straight 03/02/2022 10 :27 AM EDT documented as of this encounter Miscellaneous Notes * Telephone Encounter - Lissette Casarez - 06/08/2023 2:21 PM EST TC from pt requesting call back regarding Results. CT already scanned in chart Type of results: CT scan Date when done: 05/16 Facility: [facility] Please contact pt at [phone] (Armenian) documented in this encounter Plan of Treatment Upcoming Encounters Date Type Department Care Team (Late st Contact Info) Description 08/07/2024 3:00 PM EDT Office Visit [facility] OPTOMETRY [address] [place] [address] Miguel Angel, Dana, OD [address] [place] [address] 08/09/2024 2:45 PM EDT Office Visit [facility] MEDICINE [address] [place] [address] Olena Ramsay MD [address] [place] [address] 08/10/2024 10:00 AM EDT Office Visit [facility] ADULT DENTAL [address] [place] [phone] Leydi Harrington documented as of this encounter Visit Diagnoses Not on filedocumented in this encounter Additional Health Concerns Assessment Noted Time PHQ-9 Depression Total Score: 1 10/08/19 23 2:17 PM EDT documented as of this encounter Care Teams Advertising Solicitor Relationship Specialty Start Date End Date Olena Ramsay MD [address] [place] [phone] PCP - General Internal Medicine 10/07/22 documented as of this encounter
--- OUTSIDE RECORDS SUMMARY | 2024-08-03 08:46 | XMS_ITS | Encounter Summary ---
Author Organization [employer] Address 75 [facility] 7 [place] [address] Care Team Providers Care Kitchenhand Name Role Phone Olena Ramsay MD Primary Care Pro vider Reason for Visit * Reason Onset Date Comments appt for OS 06/27/2024 Encounter Details Date Type Department Care Team (Late st Contact Info) Description 06/27/2024 Telephone [facility] ADULT DENTAL [address] [place] [address] Odell Link, DMD [address] [place] [address] appt for OS Social History Tobacco Use Types Packs/Day Years [...] encounter Miscellaneous Notes * Telephone Encounter - Yanet Morris - 06/27/2024 10:51 AM EST Patient came for a consultation and states she would get a call to schedule the appt with Dr. Link. Informed patient that provider is here 1 time per month and office will reach out to her to schedule when her name comes on up wait list. Patient understood DR documented in this encounter Plan of Treatment Upcoming Encounters Date Type Department Care Team (Late st Contact Info) Description 08/07/2024 3:00 PM EDT Office Visit [facility] OPTOMETRY [address] [place] [address] Dana Michelle, OD [address] [place] [address] 08/09/2024 2:45 PM EDT Office Visit [facility] MEDICINE [address] [place] [address] Olena Ramsay MD [address] [place] [address] 08/10/2024 10:00 AM EDT Office Visit [facility] ADULT DENTAL [address] [place] [address] Leydi Harrington documented as of this encounter Visit Diagnoses Not on filedocumented in this encounter Additional Health Concerns Assessment Noted Time PHQ-9 Depression Total Score: 0 01/24/20 3:02 PM EDT documented as of this encounter Care Teams Kitchenhand Relationship Specialty Start Date End Date Olena Ramsay MD [address] [place] [address] PCP - General Internal Medicine 10/07/22 documented as of this encounter
--- OUTSIDE RECORDS SUMMARY | 2024-08-03 08:46 | XMS_ITS | Encounter Summary ---
Author Organization [employer] Address 75 [facility] 7 [place] [address] Care Team Providers Care Dish Person Name Role Phone Olena Ramsay MD Primary Care Pro vider Encounter Details Date Type Department Care Team ([facility] st Contact Info) Description 04/01/2023 Orders Only [facility] MEDICINE [address] [place], [place] [phone] Marianne Celis MD [address] [place] [address] Benign paroxysmal positional vertigo, unspecified laterality (Primary Dx) Social History Tobacco Use Types Packs/Day Years [...] Description 08/07/2024 3:00 PM EDT Office Visit [facility] OPTOMETRY [address] [place] [address] Miguel Angel, Dana, OD [address] [place] [address] 08/09/2024 2:45 PM EDT Office Visit [facility] MEDICINE [address] [place] [address] Olena Ramsay MD [address] [place] [address] 08/10/2024 10:00 AM EDT Office Visit [facility] ADULT DENTAL [address] [place] [address] Leydi Harrington documented as of this encounter Visit Diagnoses Diagnosis Benign paroxysmal positional vertigo, unspecified laterality- Primary documented in this encounter Additional Health Concerns Assessment Noted Time PHQ-9 Depression Total Score: 1 10/08/19 2:17 PM EDT documented as of this encounter Care Teams Dish Person Relationship Specialty Start Date End Date Olena Ramsay MD [address] [place] [address] PCP - General Internal Medicine 10/07/22 documented as of this encounter
--- OUTSIDE RECORDS SUMMARY | 2024-08-03 08:46 | XMS_ITS | Encounter Summary ---
Author Organization [employer] Address [address] [place] [address] [facility] [place] [address] Care Team Providers Care Community Placement Worker Name Role Phone Alexi Self MD Primary Care Provider Olena Buitrago MD Primary Care Pro vider Encounter Details Date Type Department Care Team (Late st Contact Info) Description 04/21/2022 [facility] Information Management [address] [place] [address] Karolyn Betancur, [facility] [address] [place] [address] Social History Tobacco Use Types Packs/Day Years [...] Description 08/07/2024 3:00 PM EDT Office Visit [facility] OPTOMETRY [address] [place] [address] Dana Michelle, OD [address] [place] [address] 08/09/2024 2:45 PM EDT Office Visit [facility] MEDICINE [address] [place] [address] Olena Ramsay MD [address] [place] [address] 08/10/2024 10:00 AM EDT Office Visit [facility] ADULT DENTAL [address] [place] [address] Leydi Harrington documented as of this encounter Visit Diagnoses Not on filedocumented in this encounter Care Teams Community Placement Worker Relationship Specialty Start Date End Date Alexi Self MD PCP - General Family Medicine 10/20/19 10/06/22 Olena Ramsay MD [address] [place] [address] PCP - General Internal Medicine 10/07/22 documented as of this encounter
--- OUTSIDE RECORDS SUMMARY | 2024-08-03 08:46 | XMS_ITS | Encounter Summary ---
Author Organization [employer] Address [address] [place] [address] [place] [address] Care Team Providers Care Risk Management Professional Name Role Phone Olena Ramsay MD Primary Care Pro vider Reason for Visit * Reason Onset Date Comments chart prep 07/31/2024 Encounter Details Date Type Department Care Team ([facility] st Contact Info) Description 07/31/2024 Telephone [facility] MEDICINE [address] [place], [place] [phone] Olena Ramsay MD [address] [place] [address] chart prep Social History Tobacco Use Types Packs/Day Years [...] encounter Miscellaneous Notes * Telephone Encounter - Nita Metz [place] - 07/31/2024 10:02 AM EDT Chart Prep Labs: not done Images: done Vaccines due: Covid Due Referrals: Completed Screenings: Not Applicable Overdue care gaps: Sbirt and Disability documented in this encounter Plan of Treatment Upcoming Encounters Date Type Department Care Team (Late st Contact Info) Description 08/07/2024 3:00 PM EDT Office Visit [facility] OPTOMETRY [address] [place] [address] Dana Michelle, TIFFANY [address] [place] [address] 08/09/2024 2:45 PM EDT Office Visit [facility] MEDICINE [address] [place] [address] Olena Ramsay MD [address] [place] [address] 08/10/2024 10:00 AM EDT Office Visit [facility] ADULT DENTAL [address] [place] [address] Leydi Harrington documented as of this encounter Visit Diagnoses Not on filedocumented in this encounter Additional Health Concerns Assessment Noted Time PHQ-9 Depression Total Score: 0 01/24/20 24 3:02 PM EDT documented as of this encounter Care Teams Risk Management Professional Relationship Specialty Start Date End Date Olena Ramsay MD [address] [place] [address] PCP - General Internal Medicine 10/07/22 documented as of this encounter
--- OUTSIDE RECORDS SUMMARY | 2024-08-03 08:46 | XMS_ITS | Encounter Summary ---
Author Organization [employer] Address 75 [facility] 7 [place] [address] Care Team Providers Care Brand Leader Name Role Phone Olena Ramsay MD Primary Care Pro vider Encounter Details Date Type Department Care Team ([facility] st Contact Info) Description 03/01/2024 Telephone [facility] MEDICINE [address] [place], [place] [phone] Olena Ramsay MD [address] [place] [address] Social History Tobacco Use Types Packs/Day Years [...] encounter Miscellaneous Notes * Telephone Encounter - Nadya Montanez - 03/01/2024 3:18 PM EDT Tc from requesting to schedule office visit (apr). No appt available at this moment. Shell Fisherman advised will send message. Contact pt at [phone] documented in this encounter Plan of Treatment Upcoming Encounters Date Type Department Care Team (Late st Contact Info) Description 08/07/2024 3:00 PM EDT Office Visit [facility] OPTOMETRY [address] [place] [address] Dana Michelle, OD [address] [place] [address] 08/09/2024 2:45 PM EDT Office Visit [facility] MEDICINE [address] [place] [address] Olena Ramsay MD [address] [place] [address] 08/10/2024 10:00 AM EDT Office Visit [facility] ADULT DENTAL [address] [place] [address] Leydi Harrington documented as of this encounter Visit Diagnoses Not on filedocumented in this encounter Additional Health Concerns Assessment Noted Time PHQ-9 Depression Total Score: 0 01/24/20 24 3:02 PM EDT documented as of this encounter Care Teams Brand Leader Relationship Specialty Start Date End Date Olena Ramsay MD [address] [place] [address] PCP - General Internal Medicine 10/07/22 documented as of this encounter
--- OUTSIDE RECORDS SUMMARY | 2024-08-03 08:46 | XMS_ITS | Encounter Summary ---
Author Organization [employer] Address [address] [place] [address] [facility] [place] [address] Care Team Providers Care Mailroom Associate Name Role Phone Alexi Self MD Primary Care Provider Olena Buitrago MD Primary Care Pro vider Encounter Details Date Type Department Care Team (Latest Contact Info) Description 09/26/[address] [facility] CONVERSIONS Dental, Provider, DDS Social History Tobacco [...] Description 08/07/2024 3:00 PM EDT Office Visit [facility] OPTOMETRY [address] [place] [address] Dana Michelle, OD [address] [place] [address] 08/09/2024 2:45 PM EDT Office Visit [facility] MEDICINE [address] [place] [address] Olena Ramsay MD [address] [place] [address] 08/10/2024 10:00 AM EDT Office Visit [facility] ADULT DENTAL [address] [place] [address] Leydi Harrington documented as of this encounter Visit Diagnoses Not on filedocumented in this encounter Care Teams Mailroom Associate Relationship Specialty Start Date End Date Alexi Self MD PCP - General Family Medicine 10/20/19 10/06/22 Olena Ramsay MD [address] [place] [address] PCP - General Internal Medicine 10/07/22 documented as of this encounter
--- OUTSIDE RECORDS SUMMARY | 2024-08-03 08:46 | XMS_ITS | Encounter Summary ---
Author Organization [employer] Address 75 [facility] 7t [place] [address] Care Team Providers Care Sewer Cleaner Name Role Phone Olena Ramsay MD Primary Care Pro vider Reason for Visit * Reason Comments Extraction Encounter Details Date Type Department Care Team ([facility] st Contact Info) Description 08/02/2024 8:00 AM EDT Office Visit [facility] ADULT DENTAL [address] [place] [address] Alyson Marcano, DDS [address] [place] [address] Social History Tobacco Use Types Packs/Day Years [...] AM EDT documented as of this encounter Last Filed Vital Signs Vital Sign Reading Time Taken Comments Blood Pressure 116/80 08/02/2024 8:06 AM EDT Pulse - - Temperature - - Respiratory Rate - - Oxygen Saturation - - Inhaled Oxygen Concentration - - Weight - - Height - - Body Mass Index - - documented in this encounter Progress Notes * Alyson Marcano DDS - 08/02/2024 8:00 AM EDT Dental procedures in this visit D7220 - REMOVAL OF IMPACTED TOOTH - SOFT TISSUE 16 (Completed) Service provider: Alyson Marcano DDS Billing provider: Odell Link DMD [id number] - EXTRACTION, ERUPTED TOOTH OR EXPOSED ROOT (ELEVATION/FORCEPS REMOVAL) 1 (Completed) Service provider: Alyson Marcano DDS Billing provider: Odell Link DMD Patient ID: Laury East is a 28 y.o. female. Time Out: Date: 08/02/2024 Location: [facility] Tooth: #1 and #16 Procedure: Extraction Verified the above with patient, psychological assistant, and provider. Confirmed via patient's chart, intraorally and by radiographs. Photogrammetric Compilation Specialist: not applicable Simple #1 & Surgical Extraction of # [address] done [address] LA by Dr. Alyson Marcano DDS Risk, benefits, and alternatives discussed with the patient. CONSENT FORM INITIALED & SIGNED BY THE PATIENT AND COUNTERSIGNED BY Dr. Alyson Marcano DDS Medical history: Reviewed in EHR Vitals: Blood pressure 116/80. Allergies: Reviewed in EHR Medications: Reviewed in EHR - LA: 20% topical benzocaine; local infiltration with 1 carpule 4% septocaine/articaine 1:100,000 epinephrine - Gingival fibers using periosteal elevator. - Tooth luxation attempted using straight elevator. - Using number 15 surgical scalpel, one vertical incision made on buccal of # 16 - Flap raised. - Tooth luxated - Tooth extracted usin - Curettage done. - Filing of sharp bony edges done. - Gel foam placed. - Sutures placed: resorbable gut sutures placed in the area of # 16 - Hemostasis achieved before dismissal. Patient comfortable to walk. - Gauze pack placed. - Post op instructions (written + verbal), extra pack of gauze and ice pack given. - Rx: amoxicillin 500mg x7day TID Ibuprofen 600mg x10day TID Patient satisfied, left in stable condition NV: follow up Provider: Dr. Alyson Marcano DDS Jig Boring Machine Operator For Metal: Klever Gonzalez Supervising Dentist: Dr. Link * Odell Link DMD - 08/02/2024 8:00 AM EDT I saw and evaluated the patient, participating in the fishman portions of the service. I reviewed the resident???s note. I agree with the resident???s findings and plan. Odell Link DMD documented in this encounter Plan of Treatment Upcoming Encounters Date Type Department Care Team (Late st Contact Info) Description 08/07/2024 3:00 PM EDT Office Visit [facility] OPTOMETRY [address] [place] [address] Dana Michelle, OD [address] [place] [address] 08/09/2024 2:45 PM EDT Office Visit [facility] MEDICINE [address] [place] [address] Olena Ramsay MD [address] [place] [address] 08/10/2024 10:00 AM EDT Office Visit [facility] ADULT DENTAL [address] [place] [address] Leydi Harrington documented as of this encounter Procedures Procedure Name Priority Date/Time Associated Diagnosis Comments 16 REMOVAL OF IMPACTED TOOTH - SOFT TISSUE Routine 08/02/2024 8:00 AM EDT 1 EXTRACTION, ERUPTED TOOTH OR EXPOSED ROOT (ELEVATION/FORCEPS REMOVAL) Routine 08/02/2024 8:00 AM EDT documented in this encounter Visit Diagnoses Not on filedocumented in this encounter Additional Health Concerns Assessment Noted Time PHQ-9 Depression Total Score: 0 01/24/20 24 3:02 PM EDT documented as of this encounter Care Teams Sewer Cleaner Relationship Specialty Start Date End Date Olena Ramsay MD [address] [place] [address] PCP - General Internal Medicine 10/07/22 documented as of this encounter
[2024-08-03 11:50] LABS: Hematocrit 38.5 % (37.0-47.0); Hemoglobin 13.3 g/dl (12.0-16.0); Mean Corpuscular HGB Conc 34.5 g/dl (31.0-35.0); Mean Corpuscular Hemoglobin 31.9 pg (27.0-33.0); Mean Corpuscular Volume 92.3 fL (80.0-98.0); Mean Platelet Volume 9.4 fL (9.4-12.3); Platelet Count 268 X10*3/uL (160-400); Red Blood Count 4.17 X10*6/uL (4.20-5.50); Red Cell Distribution Width 11.8 % (11.0-16.0); White Blood Count 9.1 X10*3/uL (4.8-10.8)
[2024-08-03 11:58] LABS: Estimated Average Glucose 105 mg/dL; Hemoglobin A1C 121.5146 umol/L; Hemoglobin A1c % 5.3 % (<6.0); Total Hemoglobin (HGBA1C) 3529.0626 umol/L
[2024-08-03 12:09] LABS: Alanine Aminotransferase 40 U/L (0-31); Albumin Level 4.2 g/dL (3.5-5.0); Alkaline Phosphatase 82 U/L (39-117); Anion Gap 8 (12-20); Aspartate Amino Transferase 31 U/L (5-31); Bilirubin Total 0.7 mg/dL (0.0-1.0); Blood Urea Nitrogen 8 mg/dL (9-16); Calcium 8.9 mg/dL (8.4-10.2); Carbon Dioxide 23 mmol/L (22-29); Chloride 112 mmol/L (96-108); Cholesterol 103 mg/dL (<200); Estimated Glomerular Filt Rate > 60; Glucose Random 85 mg/dL (60-115); HDL Cholesterol 34 mg/dL (>40); Iron 141 mcg/dL (30-160); LDL Cholesterol Calculated 52 mg/dL (<100); Percent Iron Saturation 39 % (15-50); Potassium 3.8 mmol/L (3.3-5.1); Sodium 139 mmol/L (135-145); Total Iron Binding Capacity 357 mcg/dL (228-428); Total Protein 7.1 g/dL (6.5-8.0); Triglycerides 85 mg/dL (<150); Unsaturated Iron Binding 216 ug/dL
[2024-08-03 12:12] LABS: Syphilis Screen Nonreactive (Nonreactive)
[2024-08-03 12:13] LABS: HBS Num1 393.36 mIU/mL (0-7.99); HBc Num1 0.08 S/CO (0.00-0.79); HBsAGNum1 0.36 S/CO (0.00-0.99); HIV AB/AG Nonreactive (Nonreactive); HIV Num 1 0.07 S/CO (0.00-0.99); Hepatitis B Core Antibody Nonreactive (Nonreactive); Hepatitis B Surface Antigen Negative (Negative); ~HepC Num1 0.11 S/CO (0.00-0.79); ~Hepatitis B Surface Antibody REACTIVE (Nonreactive); ~Hepatitis C Antibody Nonreactive (Nonreactive)
[2024-08-03 12:27] LABS: Ferritin 43 ng/mL (10-122); Free T4 (Free Thyroxine) 0.85 ng/dL (0.71-1.85); Thyroid Stimulating Hormone 2.67 uIU/mL (0.32-4.0)
[2024-08-03 15:32] LABS: CT PCR NOT DETECTED (Not Detect.); NG PCR NOT DETECTED (Not Detect.)
== END 2024-08-03 08:36 | disposition home or self-care (01) ==
LOC: HO.HHCL 08:35
PROVIDERS: Visit Provider Student in an Organized Health Care Education/Training Program
DX: Z00.00 Encounter for general adult medical examination without abnormal findings (principal); D64.9 Anemia, unspecified
CPT/HCPCS: 80053; 80061; 82728; 83036; 83540; 84439; 84443; 85027; 86704; 86706; 86780; 86803; 87340; 87389; 87491; 87591

== ENCOUNTER 2024-08-28 15:50 | Outpatient (REF) | payer OTHER, SELFPAY ==
[2024-08-28 18:30] LABS: Alanine Aminotransferase 32 U/L (0-31); Albumin Level 4.3 g/dL (3.5-5.0); Alkaline Phosphatase 97 U/L (39-117); Aspartate Amino Transferase 25 U/L (5-31); Bilirubin Direct < 0.2 mg/dL (0.0-0.5); Bilirubin Total 0.2 mg/dL (0.0-1.0); Total Protein 7.3 g/dL (6.5-8.0)
[2024-08-28 18:35] LABS: Gamma Glutamyl Transpeptidase 16 U/L (7-33)
--- OUTSIDE RECORDS SUMMARY | 2024-08-28 19:01 | XMS_ITS | Encounter Summary ---
Author Organization [employer] Address [address] [place] [address] [facility] [place] [address] Care Team Providers Care Senior Mortgage Underwriter Name Role Phone Alexi Self MD Primary Care Provider Olena Buitrago MD Primary Care Pro vider Encounter Details Date Type Department Care Team (Latest Contact Info) Description 06/08/2019 Abstract [facility] CONVERSIONS Dental, Provider, DDS Social History Tobacco [...] Info) Description 09/19/2024 3:00 PM EDT Nutrition [facility] DIABETES/NUTRITION [address] [place] [address] Stephany Jc, RD [address] [place] [address] 01/04/2025 3:00 PM EDT Office Visit [facility] ADULT DENTAL [address] [place], [place] [phone] Leydi Harrington documented as of this encounter Visit Diagnoses Not on filedocumented in this encounter Care Teams Senior Mortgage Underwriter Relationship Specialty Start Date End Date Alexi Self MD PCP - General Family Medicine 10/20/19 10/06/22 Olena Ramsay MD [address] [place] [phone] PCP - General Internal Medicine 10/07/22 documented as of this encounter
--- OUTSIDE RECORDS SUMMARY | 2024-08-28 19:01 | XMS_ITS | Clinical Summary ---
Author Organization [employer] Address [address] [place] [address] 7 [place] [address] Care Team Providers Care Molded Goods Controls Operator Name Role Phone Olena Ramsay MD Primary Care Pro vider Allergies Active Allergy Reactions Criticality Noted Date Comments Apple Fruit Extract 06/14/2024 Apple Juice Itching Low 02/03/2021 Other reaction(s): Unknown [place] Flavoring Agent (Non-Screening) Itching 10/07/2022 Prunus Persica Low 05/16/2023 Other reaction(s): Unknown Medications Sod Fluoride-Potas sium Nitrate 1.1-5 % pasteIndicatio ns:Dental caries Clarita teeth for 2 minutes, morning and night. [...] call pt abnormal result -referred today to sterile processing tech Assessment & Plan (10/07/2022 5:30 PM EDT): [...] if ongoing irreg to f w her BDR -TV/pelvic US 05/2022: There are some myometrial changes suggestive of adenomyosis. The right ovary contains a cyst as with apparent suggestive of a corpus luteal cyst. ---> pt w her BDR x this Overweight (BMI 25.0-29.9) 10/07/2022 Assessment & Plan (11/05/2022 7:02 PM EDT): Advised pt to improve diet and exercise,discussed healthy life style -discussed tubing oiler referral -wants to hold on referral x now Assessment & Plan (10/07/2022 5:23 PM EDT): Advised pt to improve diet and exercise,discussed healthy life style -discussed tubing oiler referral -wants to hold on referral x now BPPV (benign paroxysmal positional vertigo) 10/2022 Assessment & Plan (11/05/2022 7:04 PM EDT): Pt clinically and from exam w BPPV w normal neuro exam and [place]-Hallpike maneuver is casing vertigo but no nystagmus [...] Department Care Team Description 08/28/2024 Orders Only [facility] CHC MED & PEDS [address] [place], [place] [phone] Karoline Damon 08/09/2024 2:45 PM EDT Office Visit [facility] MEDICINE [address] [place] [address] Olena Ramsay MD Overweight (BMI 25.0-29.9) (Primary Dx); Dietary counseling; Exercise counseling; Transaminitis; Skin tag; Health care maintenance 08/09/2024 Travel 08/07/2024 3:00 PM EDT Office Visit [facility] OPTOMETRY [address] [place], [place] [phone] Miguel Angel, Dana, OD Refractive amblyopia of right eye (Primary Dx); Regular astigmatism of both eyes; Examination of eyes and vision 08/07/2024 Travel 08/04/2024 Telephone [facility] MEDICINE [address] [place] [address] Olena Ramsay MD Appointment Confirmation 08/03/2024 Orders Only [address] [address] Olena Ramsay MD 08/02/2024 8:00 AM EDT Office Visit [facility] ADULT DENTAL [address] [place] [address] Alyson Marcano, DDS 07/31/[address] [address] Olena Ramsay MD chart prep 07/28/2024 Patient Outreach [address] [address] Olena Ramsay MD Pre-visit Planning ([facility] screening was completed on 05/29/2024) 07/10/2024 Telephone [facility] ADULT DENTAL [address] [place] [address] Alyson Marcano, DDS 07/10/2024 Telephone [facility] ADULT DENTAL [address] [place] [address] Alyson Marcano, DDS Possible PA denial wisdom teeth ext 06/27/2024 Telephone [facility] ADULT DENTAL [address] [place] [phone] Odell Link DMD appt for OS 06/14/2024 3:15 PM EST Office Visit [facility] ADULT DENTAL [address] [place] [address] Alyson Marcano, DDS 06/08/[address] [address] Wendy Aviles [place] chart prep 06/08/[address] [address] Wendy Aviles [place] chart prep from Last [...] Info) Description 09/19/2024 3:00 PM EDT Nutrition [facility] DIABETES/NUTRITION [address] [place] [address] [address] J[address], RD [address] [place], [place] [phone] 01/04/2025 3:00 PM EDT Office Visit [facility] ADULT DENTAL [address] [place], [place] [phone] Leydi Harrington Health Maintenance Due Date Last [...] Completed 01/24/2024, 02/26/2021 HIV Screening Completed 08/03/2024, 060 10/2022, 04/10/2019 Hepatitis C Screening Completed 08/03/2024 , [...] Procedure Name Priority Date/Time Associated Diagnosis Comments GGT Routine 08/28/2024 4:41 PM EDT HEPATIC FUNCTION PANEL Routine 4:41 PM EDT [...] Recently Relevant to Health Maintenance Results * Gamma Glutamyl Transferase (GGT) (08/28/2024 4:41 PM EDT) Gamma Glutamyl Transpeptidase 16 7 - 33 U/L [facility] 08/28/2024 4:41 PM EDT 08/28/2024 4:41 PM EDT us Generic External Data Provider LAB BLOOD ORDERAB LES Final Result Performing Organization Address City/State/[place]UST Co de Phone Number [facility] [address] [place] [phone] * (ABNORMAL) Hepatic Function Panel (08/28/2024 4:41 PM EDT) Bilirubin, Total 0.2 0.0 - 1.0 mg/dL [facility] Bilirubin, Direct <0.2 0.0 - 0.5 mg/dL [facility] Aspartate Amino Transferase 25 5 - 31 U/L [facility] Alanine Aminotransferase 32(H) 0 - 31 U/L [facility] Total Protein 7.3 6.5 - 8.0 g/dL [facility] Albumin Level 4.3 3.5 - 5.0 g/dL [facility] Alkaline Phosphatase 97 39 - 117 U/L [facility] 08/28/2024 4:41 PM EDT 08/28/2024 4:41 PM EDT us Generic External Data Provider LAB BLOOD ORDERAB LES Final Result Performing Organization Address [facility]/ZIP Co de Phone Number [facility] [address] [place] [phone] * Syphilis Screen (08/03/2024 8:38 AM EDT) Syphilis Screen Nonreactive Nonreactive [facility] Blood 08/03/2024 8:38 AM EDT 08/03/2024 11:28 AM EDT us Olena Jorge MD LAB BLOOD ORDERAB LES Final Result Performing Organization Address [facility]/[place] Co de Phone Number [facility] [address] [place] [phone] * Hepatitis C Antibody with Reflex to HCV, RNA, Quantitative, Real-Time PCR (08/03/2024 8:38 AM EDT) [facility] Hepatitis C Antibody Nonreactive Nonreactive [facility] Comment:Antibodies to HCV no t detected; does not exclude early acuteHCV infection. Blood Venous blood specimen / Unknown 08/03/2024 8:38 AM EDT 08/03/2024 11:28 AM EDT us Olena Jorge MD LAB BLOOD ORDERAB LES Final Result Performing Organization Address [facility]/ZIP Co de Phone Number [facility] [address] [place] [phone] * Iron And Total Iron Binding Capacity (08/03/2024 8:38 AM EDT) Iron 141 30 - 160 mcg/dL [facility] Total Iron Binding Capacity 357 228 - 428 mcg/dL [facility] Percent Iron Saturation 39 15 - 50 % [facility] Unsaturated Iron Binding 216 ug/dL [facility] Blood Venous blood specimen / Unknown 08/03/2024 8:38 AM EDT 08/03/2024 11:28 AM EDT Olena Jorge MD LAB BLOOD ORDERAB LES Final Result [facility] [address] [place] [phone] * Chlamydia/N. Gonorrhoeae RNA, TMA, Urogenitial (08/03/2024 8:38 AM EDT) CT PCR NOT DETECTED Not Detect. [facility] Comment:A not detected test result does [...] psychologicalconsequences. NG PCR NOT DETECTED Not Detect. [facility] Comment:A not detected test result does [...] AM EDT 08/03/2024 11:21 AM EDT Narrative [facility] - 08/03/2024 3:32 PM EDT Urine us Olena Jorge MD LAB MICROBIOLOGY - GENERAL ORDERABLES Final Result Performing Organization Address [facility]/[place] Co de Phone Number [facility] [address] [place] [phone] * Hepatitis B surface antigen, EIA (08/03/2024 8:38 AM EDT) Pathologist [facility] Hepatitis B Surface Ag Negative Negative [facility] Blood Venous blood specimen / Unknown 08/03/2024 8:38 AM EDT 08/03/2024 11:28 AM EDT us Olena Jorge MD LAB BLOOD ORDERAB LES Final Result Performing Organization Address [facility]/[place] Co de Phone Number [facility] [address] [place] [phone] * Hepatitis B Core Antibody, Total (08/03/2024 8:38 AM EDT) Pathologist [facility] Hepatitis B Core Antibody Nonreactive Nonreactive [facility] Blood Venous blood specimen / Unknown 08/03/2024 8:38 AM EDT 08/03/2024 11:28 AM EDT us Olena Jorge MD LAB BLOOD ORDERAB LES Final Result Performing Organization Address [facility]/[place] Co de Phone Number [facility] [address] [place] [phone] * HIV-1/2 Antigen and Antibodies, Fourth Generation, with Reflexes (08/03/2024 8:38 AM EDT) HIV AB/AG Nonreactive Nonreactive [facility] Comment:HIV-1 p24 Ag and/or HIV-1/HIV-2 Ab not detected.A test result that is nonreactive does not exclude thepossibility of exposure to or infection with HIV-1 and/orHIV-2. Nonreactive results in this assay for individualswith prior exposure to HIV-1 and/or HIV-2 may be due toantigen and antibody levels that are below the limit ofdetection of this assay.The Vertigo HIV Ag/Ab Combo assay result andsupplemental assay results should be interpreted inconjunction with the patient's clinical presentation,history and other laboratory results. If the results areinconsistent with clinical evidence, additional testing issuggested to confirm the result. Blood Venous blood specimen / Unknown 08/03/2024 8:38 AM EDT 08/03/2024 11:28 AM EDT us Olena Jorge MD LAB BLOOD ORDERAB LES Final Result Performing Organization Address City/[facility]/ZIP Co de Phone Number [facility] [address] [place] [phone] * Hepatitis B Surface Antibody, Qualitative (08/03/2024 8:38 AM EDT) [facility] ~Hepatitis B Surface Antibody REACTIVE Nonreactive [facility] Comment:REACTIVE: > 11.99 mI U/mL Blood Venous blood specimen / Unknown 08/03/2024 8:38 AM EDT 08/03/2024 11:28 AM EDT us Olena Jorge MD LAB BLOOD ORDERAB LES Final Result Performing Organization Address [facility]/ZIP Co de Phone Number [facility] [address] [place] [phone] * (ABNORMAL) CBC (08/03/2024 8:38 AM EDT) [facility] White Blood Count 9.1 4.8 - 10.8 X10*3/uL [facility] Red Blood Count 4.17(L) 4.20 - 5.50 X10*6/uL [facility] Hemoglobin 13.3 12.0 - 16.0 g/dl [facility] Hematocrit 38.5 37.0 - 47.0 % [facility] Mean Corpuscular Volume 92.3 80.0 - 98.0 fL [facility] Mean Corpuscular Hemoglobin 31.9 27.0 - 33.0 pg [facility] Mean Corpuscular HGB Conc 34.5 31.0 - 35.0 g/dl [facility] Red Cell Distribution Width 11.8 11.0 - 16.0 % [facility] Platelet Count 268 160 - 400 X10*3/uL [facility] Mean Platelet Volume 9.4 9.4 - 12.3 fL [facility] NRBC Pct Auto 0.0 0.0 - 0.2 /100WBC [facility] NRBC Abs Auto 0.000 0.0 - 0.012 X10*3/uL [facility] Blood Venous blood specimen / Unknown 08/03/2024 8:38 AM EDT 08/03/2024 11:28 AM EDT Olena Jorge MD LAB BLOOD ORDERAB LES Final Result [facility] [address] [place] [phone] * TSH (08/03/2024 8:38 AM EDT) Thyroid Stimulating Hormone 2.67 0.32 - 4.0 uIU/mL [facility] Comment:Note: A sustained TS H level above 2.5 uIU/mL may warrant further investigation. TSH 3rd Generation ([facility]) Blood Venous blood specimen / Unknown 08/03/2024 8:38 AM EDT 08/03/2024 11:28 AM EDT Olena Jorge MD LAB BLOOD ORDERAB LES Final Result Performing Organization Address [facility]/ZIP Co de Phone Number [facility] [address] [place] [phone] * T4, Free (08/03/2024 8:38 AM EDT) Free T4 (Free Thyroxine) 0.85 0.71 - 1.85 ng/dL [facility] Blood Venous blood specimen / Unknown 08/03/2024 8:38 AM EDT 08/03/2024 11:28 AM EDT us Olena Jorge MD LAB BLOOD ORDERAB LES Final Result Performing Organization Address [facility] Phone Number [facility] [address] [place] [phone] * Hemoglobin A1c (08/03/2024 8:38 AM EDT) Hemoglobin A1c 5.3 <6.0 % [facility] Comment:Hemoglobin A1C Refer ence Range Adults: 4.8 - 6.0 % Non diabetic: < 6.0 % Goal: < 7.0 %Additional Action Suggested: > 8.0 %Note: Hemoglobin A1c results are invalid for patients with abnormal amounts of HbF. Blood transfusions may impact the HbA1c concentration in the patient sample. Estimated Average Glucose 105 mg/dL [facility] Comment:eAG = Estimated ave rage glucose which is %A1C expressed asaverage glucose, using the formula of the [id number] Glucose study (ADAG), Diabetes Care, Vol.31,#8,2007 Blood Venous blood specimen / Unknown 08/03/2024 8:38 AM EDT 08/03/2024 11:28 AM EDT us Olena Jorge MD LAB BLOOD ORDERAB LES Final Result Performing Organization Address [facility]/[place] Co de Phone Number [facility] [address] [place] [phone] * Ferritin (08/03/2024 8:38 AM EDT) Ferritin 43 10 - 122 ng/mL [facility] 08/03/2024 8:38 AM EDT 08/03/2024 11:28 AM EDT us Olena Jorge MD LAB BLOOD ORDERAB LES Final Result Performing Organization Address City/[facility]/ZIP Co de Phone Number [facility] [address] [place] [phone] * (ABNORMAL) Lipid Panel, Standard (08/03/2024 8:38 AM EDT) Triglycerides 85 <150 mg/dL [facility] Comment:Desirable Triglyceri de: less than 150 mg/dLBorderline High Triglyceride 150-199 mg/dLHigh Triglyceride: 200-499 mg/dLVery High Triglyceride: greater than or equal to 5OO mg/dL Cholesterol 103 <200 mg/dL [facility] Comment:Desirable Cholestero l: less than 200 mg/dLBorderline High Cholesterol: 200-239 mg/dLHigh Cholesterol: greater than 239 mg/dL LDL Cholesterol Calculated 52 <100 mg/dL [facility] Comment:Desirable LDL: less than 100 mg/dLNear Optimal/Above Optimal LDL: 110- 129 mg/dLBorderline High LDL: 130-159 mg/dLHigh LDL: 160-189 mg/dLVery High LDL: greater than or equal to 190 mg/dL HDL Cholesterol 34(L) >40 mg/dL [facility] Comment:Desirable HDL: great er than 40 mg/dL Note: This HDL assay may give artificially low results in patients with liver disease. Blood Venous blood specimen / Unknown 08/03/2024 8:38 AM EDT 08/03/2024 11:28 AM EDT us Olena Jorge MD LAB BLOOD ORDERAB LES Final Result Performing Organization Address City/[facility]/ZIP Co de Phone Number [facility] [address] [place] [phone] * (ABNORMAL) Comprehensive Metabolic Panel (08/03/2024 8:38 AM EDT) Sodium 139 135 - 145 mmol/L [facility] Potassium 3.8 3.3 - 5.1 mmol/L [facility] Chloride 112(H) 96 - 108 mmol/L [facility] Carbon Dioxide 23 22 - 29 mmol/L [facility] Anion Gap 8(L) 12 - 20 [facility] Urea Nitrogen (BUN) 8(L) 9 - 16 mg/dL [facility] Creatinine, Serum 0.58 0.5 - 1.4 mg/dL [facility] Estimated Glomerular Filt Rate >60 [facility] Comment:Chronic Kidney Disea se: Estimated GFR < 60 mL/min/1.22w0Rlxpzq Kidney Disease: Estimated GFR < 15 mL/min/1.73m2 Glucose 85 60 - 115 mg/dL [facility] Calcium 8.9 8.4 - 10.2 mg/dL [facility] Bilirubin, Total 0.7 0.0 - 1.0 mg/dL [facility] Aspartate Amino Transferase 31 5 - 31 U/L [facility] Alanine Aminotransferase 40(H) 0 - 31 U/L [facility] Total Protein 7.1 6.5 - 8.0 g/dL [facility] Albumin Level 4.2 3.5 - 5.0 g/dL [facility] Alkaline Phosphatase 82 39 - 117 U/L [facility] Blood Venous blood specimen / Unknown 08/03/2024 8:38 AM EDT 08/03/2024 11:28 AM EDT us Olena Jorge MD LAB BLOOD ORDERAB LES Final Result [facility] [address] [place] [phone] * HPV mRNA E6/E7 w/Reflex to HPV Genotypes 16, 18/45 (03/09/2024 12:00 AM EST) us Historical Provider MD LAB CYTOLOGY ORDERABLES F inal Result [facility] [address] [place] [phone] [phone] * Pap Smear (03/09/2024 12:00 AM EST) Swab Cervix uteri structure / Unknown 03/09/2024 03/10/2024 10:20 AM EST Narrative [facility] - 03/14/2024 10:28 AM EST ----- ------- Name: Laury Zapata ?Age/Sex: 28/F ? : 1995 Unit#: [id number] ?? Attend Dr: ?Re03/09/24 ?Status: PRE REF ? Location: HO.LNP ?Disch: ? ----- ------- SPEC : [id number] ?RECD: 03/10/24-0 ? STATUS: ??SOUT ? REQ NUM: [id number] ? ALISSA: 03/09/24-0000 ? SUBM DR: BEE [...] END OF REPORT ? us Bee Lawrence [facility] LAB CYTOLOGY ORDERABLES F inal Result [facility] [address] [place] [phone] [phone] from Last 3 Months or Most Recently Relevant to Health Maintenance Insurance [facility] AD[facility] - HSN FULL (MEDICAID) Care Teams Molded Goods Controls Operator Relationship Specialty Start Date End Date Olena Ramsay MD [address] [place] [phone] PCP - General Internal Medicine 10/07/22
--- OUTSIDE RECORDS SUMMARY | 2024-08-28 19:01 | XMS_ITS | Encounter Summary ---
Author Organization [employer] Address [address] [place] [address] 7 [place] [address] Care Team Providers Care Explosives Engineer Name Role Phone Alexi Self MD Primary Care Provider Olena Buitrago MD Primary Care Pro vider Encounter Details Date Type Department Care Team (Late st Contact Info) Description 04/21/2022 [facility] Health Information Management [address] [place] [address] Karolyn Betancur, SENIOR CATEGORY MANAGER [address] [place] [address] Social History Tobacco Use Types Packs/Day Years [...] Description 09/19/2024 3:00 PM EDT Nutrition [facility] DIABETES/NUTRITION [address] [place] [address] [place] [address] 01/04/2025 3:00 PM EDT Office Visit [facility] ADULT DENTAL [address] [place] [address] Leydi Harrington documented as of this encounter Visit Diagnoses Not on filedocumented in this encounter Care Teams Explosives Engineer Relationship Specialty Start Date End Date Alexi Self MD PCP - General Family Medicine 10/20/19 10/06/22 Olena Ramsay MD [address] [place] [address] PCP - General Internal Medicine 10/07/22 documented as of this encounter
--- OUTSIDE RECORDS SUMMARY | 2024-08-28 19:01 | XMS_ITS | Encounter Summary ---
Author Organization [employer] Address [address] [facility] 7 [place] [address] Care Team Providers Care Bungy Jump Master Name Role Phone Olena Ramsay MD Primary Care Pro vider Reason for Visit * Reason Onset Date Comments appt for OS 06/27/2024 Encounter Details Date Type Department Care Team ([facility] st Contact Info) Description 06/27/2024 Telephone [facility] ADULT DENTAL [address] [place] [address] Odell Link, DMD [address] [place] [address] appt for OS Social History Tobacco Use [...] Info) Description 09/19/2024 3:00 PM EDT Nutrition [facility] DIABETES/NUTRITION [address] [place] [address] [address] J[address], RD [address] [place] [address] 01/04/2025 3:00 PM EDT Office Visit [facility] ADULT DENTAL [address] [place] [address] Leydi Harrington documented as of this encounter Visit Diagnoses Not on filedocumented in this encounter Additional Health Concerns Assessment Noted Time PHQ-9 Depression Total Score: 0 01/24/20 24 3:02 PM EDT documented as of this encounter Care Teams Bungy Jump Master Relationship Specialty Start Date End Date Olena Ramsay MD [address] [place] [id number] PCP - General Internal Medicine 10/07/22 documented as of this encounter
--- OUTSIDE RECORDS SUMMARY | 2024-08-28 19:01 | XMS_ITS | Encounter Summary ---
Author Organization [employer] Address [address] [facility] 7t [place] [address] Care Team Providers Care Plug Saw Operator Name Role Phone Olena Ramsay MD Primary Care Pro vider Encounter Details Date Type Department Care Team ([facility] st Contact Info) Description 08/28/2024 Orders Only [facility] CHC MED & PEDS [address] [place], [place] [phone] Karoline Damon Social History Tobacco Use Types [...] Info) Description 09/19/2024 3:00 PM EDT Nutrition [facility] DIABETES/NUTRITION [address] [place], [place] [phone] Stephany Jc, VEDA [address] [place] [address] 01/04/2025 3:00 PM EDT Office Visit [facility] ADULT DENTAL [address] [place] [address] Leydi Harrington documented as of this encounter Procedures Procedure Name Priority Date/Time Associated Diagnosis Comments GGT Routine 08/28/2024 4:41 PM EDT HEPATIC FUNCTION PANEL Routine 08/28/2024 4:41 PM EDT HPV MRNA E6/E7 REFLEX TO HPV 16, 18/45 Routine 03/09/2024 12:00 AM EST documented in this encounter Results * Gamma Glutamyl Transferase (GGT) (08/28/2024 4:41 PM EDT) Gamma Glutamyl Transpeptidase 16 7 - 33 U/L [facility] 08/28/2024 4:41 PM EDT 08/28/2024 4:41 PM EDT us Generic External Data Provider LAB BLOOD ORDERAB LES Final Result [facility] [address] [place] [address] [phone] * (ABNORMAL) Hepatic Function Panel (08/28/2024 4:41 PM EDT) Bilirubin, Total 0.2 0.0 - 1.0 mg/dL [facility] Bilirubin, Direct <0.2 0.0 - 0.5 mg/dL [facility] Aspartate Amino Transferase 25 5 - 31 U/L [facility] Alanine Aminotransferase 32(H) 0 - 31 U/L [facility] Total Protein 7.3 6.5 - 8.0 g/dL [facility] Albumin Level 4.3 3.5 - 5.0 g/dL [facility] Alkaline Phosphatase 97 39 - 117 U/L [facility] 08/28/2024 4:41 PM EDT 08/28/2024 4:41 PM EDT us Generic External Data Provider LAB BLOOD ORDERAB LES Final Result Performing Organization Address [facility] Co de Phone Number [facility] [address] [place] [phone] * HPV mRNA E6/E7 w/Reflex to HPV Genotypes 16, 18/45 (03/09/2024 12:00 AM EST) us Historical Provider LAB CYTOLOGY ORDERABLES F inal Result Performing Organization Address [facility] Co de Phone Number [facility] [address] [place] [phone] documented in this encounter Visit Diagnoses Not on filedocumented in this encounter Additional Health Concerns Assessment Noted Time PHQ-9 Depression Total Score: 0 01/24/20 24 3:02 PM EDT documented as of this encounter Care Teams Plug Saw Operator Relationship Specialty Start Date End Date Olena Ramsay MD [address] [place] [address] PCP - General Internal Medicine 10/07/22 documented as of this encounter
--- OUTSIDE RECORDS SUMMARY | 2024-08-28 19:01 | XMS_ITS | Encounter Summary ---
Author Organization [email or web address] Address 75 [facility] 7 [place] [address] Care Team Providers Care Body Shop Estimator Name Role Phone Olena Ramsay MD Primary Care Pro vider Encounter Details Date Type Department Care Team ([facility] st Contact Info) Description 04/01/2023 Orders Only [facility] MEDICINE [address] [place], [place] [phone] Marianne Celis MD [address] [place] [address] Benign paroxysmal positional vertigo, unspecified laterality (Primary [...] Info) Description 09/19/2024 3:00 PM EDT Nutrition [facility] DIABETES/NUTRITION [address] [place] [address] Stephany Jc, VEDA [address] [place] [address] 01/04/2025 3:00 PM EDT Office Visit [facility] ADULT DENTAL [address] [place] [address] Leydi Harrington documented as of this encounter Visit Diagnoses Diagnosis Benign paroxysmal positional vertigo, unspecified laterality- Primary documented in this encounter Additional Health Concerns Assessment Noted Time PHQ-9 Depression Total Score: 1 10/08/19 2:17 PM EDT documented as of this encounter Care Teams Body Shop Estimator Relationship Specialty Start Date End Date Olena Ramsay MD [address] [place] [phone] PCP - General Internal Medicine 10/07/22 documented as of this encounter
--- OUTSIDE RECORDS SUMMARY | 2024-08-28 19:01 | XMS_ITS | Encounter Summary ---
Author Organization [employer] Address [address] [facility] 7 [place] [address] Care Team Providers Care Dragline Oiler Name Role Phone Olena Ramsay MD Primary Care Pro vider Encounter Details Date Type Department Care Team ([facility] st Contact Info) Description 03/01/2024 Telephone [facility] MEDICINE [address] [place], [place] [phone] Olena Ramsay MD [address] [place] [address] Social History Tobacco Use Types Packs/Day Years [...] (apr). No appt available at this moment. Commercial Green Building Designer advised will send message. Contact pt at [phone] documented in this encounter Plan of Treatment Upcoming Encounters Date Type Department Care Team (Late st Contact Info) Description 09/19/2024 3:00 PM EDT Nutrition [facility] DIABETES/NUTRITION [address] [place] [address] [place] [address] 01/04/2025 3:00 PM EDT Office Visit [facility] ADULT DENTAL [address] [place], [place] [phone] Leydi Harrington documented as of this encounter Visit Diagnoses Not on filedocumented in this encounter Additional Health Concerns Assessment Noted Time PHQ-9 Depression Total Score: 0 01/24/20 24 3:02 PM EDT documented as of this encounter Care Teams Dragline Oiler Relationship Specialty Start Date End Date Olena Ramsay MD [address] [place] [address] PCP - General Internal Medicine 10/07/22 documented as of this encounter
--- OUTSIDE RECORDS SUMMARY | 2024-08-28 19:01 | XMS_ITS | Encounter Summary ---
Author Organization [employer] Address [address] [place] [address] [place] [address] Care Team Providers Care Tire Mounter Name Role Phone Olena Ramsay MD Primary Care Pro vider Reason for Visit * Reason Onset Date Comments Results 06/08/2023 Encounter Details Date Type Department Care Team ([facility] st Contact Info) Description 06/08/[address] [facility] MEDICINE [address] [place], [place] [phone] Olena Ramsay MD [address] [place] [address] Results Social History Tobacco Use Types Packs/Day [...] CT scan Date when done: 05/16 Facility: [facility] Please contact pt at [phone] (Namibian) documented in this encounter Plan of Treatment Upcoming Encounters Date Type Department Care Team (Late st Contact Info) Description 09/19/2024 3:00 PM EDT Nutrition [facility] DIABETES/NUTRITION [address] [place], [place] [phone] Stephany Jc, VEDA [address] [place] [address] 01/04/2025 3:00 PM EDT Office Visit [facility] ADULT DENTAL [address] [place], [place] [phone] Leydi Harrington documented as of this encounter Visit Diagnoses Not on filedocumented in this encounter Additional Health Concerns Assessment Noted Time PHQ-9 Depression Total Score: 1 10/08/19 2:17 PM EDT documented as of this encounter Care Teams Tire Mounter Relationship Specialty Start Date End Date Olena Ramsay MD [address] [place], [place] [phone] PCP - General Internal Medicine 10/07/22 documented as of this encounter
--- OUTSIDE RECORDS SUMMARY | 2024-08-28 19:01 | XMS_ITS | Encounter Summary ---
Author Organization [employer] Address [address] [place] [address] [facility] [place] [address] Care Team Providers Care History Professor Name Role Phone Alexi Self MD Primary Care Provider Olena Buitrago MD Primary Care Pro vider Encounter Details Date Type Department Care Team (Latest Contact Info) Description 09/26/2020 Abstract [facility] CONVERSIONS Dental, Provider, DDS Social History Tobacco [...] Info) Description 09/19/2024 3:00 PM EDT Nutrition [facility] DIABETES/NUTRITION [address] [place] [address] [address] Jc, RD [address] [place] [address] 01/04/2025 3:00 PM EDT Office Visit [facility] ADULT DENTAL [address] [place] [address] Leydi Harrington documented as of this encounter Visit Diagnoses Not on filedocumented in this encounter Care Teams History Professor Relationship Specialty Start Date End Date Alexi Self MD PCP - General Family Medicine 10/20/19 10/06/22 Olena Ramsay MD [address] [place] [address] PCP - General Internal Medicine 10/07/22 documented as of this encounter
== END 2024-08-28 15:51 | disposition home or self-care (01) ==
LOC: HO.LAB 15:50
PROVIDERS: PCP Student in an Organized Health Care Education/Training Program; Visit Provider Nurse Practitioner Family
DX: R10.11 Right upper quadrant pain (principal); K59.01 Slow transit constipation; K62.5 Hemorrhage of anus and rectum; R10.13 Epigastric pain; R14.0 Abdominal distension (gaseous)
CPT/HCPCS: 36415; 80076; 82977; 99212

== ENCOUNTER 2024-08-28 15:50 | Outpatient (AMB) | payer OTHER, SELFPAY ==
[2024-08-28 15:54] VITALS: BP 120/82; PULSE 70; O2SAT 99; BMI 26.9
--- NOTE | 2024-08-28 15:54 | A.OFFVIS_ITS ---
Vital Signs 08/28/24 15:54 Height 5 ft 2 in Weight 147 lb BMI 26.9 BP 120/82 Blood Pressure Location Rt brachial Position Sitting Pulse 70 Pulse Source Pulse Oximeter Pulse Oximetry (%) 99 Oxygen Delivery Method Room Air Intake Visit Reasons: 6 mo f/u Intake Note: ESTABLISHED PATIENT for Constipation mgmt. 6 mos FUV. Chief Complaint; C/O RUQ pain intermittently, x3-4 episodes per day. Pt also reports intermittent BRB per rectum and constipation. With increased fluid intake, sx appear to be well controlled per pt. However, pt cannot always ensure adequate fluid intake due to work schedule. Pt would like advice on how to combat this. Patternmaker Pressure Cast Required: Yes Patternmaker Pressure Cast Services: Patternmaker Pressure Cast Present Patternmaker Pressure Cast Name: Shady [id number] + [facility] Information Interpreted: clinical only Accompanied by: Self / Same As Patient Allergies No Known Allergies Allergy (Verified 08/28/24 15:58) HPI HPI 6 mo f/u : Details: LAST VISIT: Food Constipation Rectal bleed Postprandial epigastric pain Postprandial abdominal pain in right upper quadrant Postprandial abdominal bloating Plan Patient will continue omeprazole for now. May take probiotics daily. Increase fluid intake and activity to promote better bowel motility. Low FODMAP diet discussed with patient follow-up recommendations and avoid food that is not recommended per list that she has at home. Patient was instructed that she may try to stop omeprazole however he and stop abruptly and try to do it every other day then decreasing till no longer she will be taking it daily, however if she will have symptoms and they will return is to call our office and she can restart the omeprazole then. Patient will follow-up in our office in 6 months, she will call if she will have any GI concerning symptoms. She is agreeable to this plan and verbalizes understanding of instructions. She was given the opportunity to ask questions and all questions answered. TODAY'S VISIT: Patient is here today for follow-up. Patient reports that she was doing well for sometimes, however in the past couple weeks her symptoms of right upper quadrant pain are getting worse. Patient reports that the pain is and sometimes not related to meals. Patient reports that she feels like the pain radiates to her right upper back. Patient reports that she is moving her bowels, however occasionally when patient is not drinking enough water she will have trouble moving her bowels and occasionally she will have blood after bowel movement when wiping. No actual melena or hematochezia. Reports occasional abdominal bloating and feeling gassy. Patient reports that omeprazole has been working for her. Patient has not been following low FODMAP diet. Mostly eating [employer] food with rice and beans. Not eating enough fruits or vegetables. Patient denies any nausea or vomiting, denies dyspepsia, dysphagia or odynophagia. [facility] Social History Household Members: Family Alcohol intake: never Patient Tobacco Use Status: Never used Tobacco Review of Systems Const Denies weight gain and Denies weight loss ENT Reports no additional complaints, Denies dysphagia and Denies odynophagia Card Reports no additional complaints Resp Reports no additional complaints GI Denies abdominal pain, Denies belching, Denies melena, Denies bloating, Denies change in bowel habits, Denies dysphagia, Denies excessive flatus, Denies dyspepsia, Denies heartburn, Denies diarrhea, Denies loose stools, Denies nausea, Denies odynophagia and Denies vomiting Musc Reports no additional complaints Neuro Reports no additional complaints Psych Reports no additional complaints Endo Reports no additional complaints Physical Exam Const General: healthy appearing, no acute distress and well developed Nutritional Appearance: well nourished Orientation/consciousness: patient oriented x3 Resp Effort & Inspection: normal respiratory effort, able to speak in complete sentences, no tracheal deviation and symmetric chest movement Auscultation: clear to auscultation bilaterally Cardio Rate: regular rate GI Inspection: Yes normal to inspection and No distended Palpation (GI): Soft to palpation, not firm, nontender and No hepatosplenomegaly present Auscultation: normal bowel sounds General: Yes no CVA tenderness Back/Spine/Pelvis Back: no CVA tenderness Skin General skin exam: elasticity normal, turgor normal and dry skin Neuro General: patient oriented x3 Psych Appearance: grossly normal Mental Status: mental status grossly normal Assessment & Plan Assessment & Plan (1) Constipation: Code(s): K59.00 - Constipation, unspecified Qualifiers: Constipation type: slow transit constipation Qualified Code(s): K59.01 - Slow transit constipation (2) Rectal bleed: Code(s): K62.5 - Hemorrhage of anus and rectum (3) Postprandial epigastric pain: Code(s): R10.13 - Epigastric pain (4) Postprandial abdominal pain in right upper quadrant: Code(s): R10.11 - Right upper quadrant pain (5) Postprandial abdominal bloating: Code(s): R14.0 - Abdominal distension (gaseous) Plan Continue omeprazole daily. Avoid dietary triggers and late night snacking. Staying upright for minimal 3 hours after meals discussed with patient. Right upper quadrant nontender, without rebound tenderness. Normal bowel sounds. Patient will be sent for HIDA scan. Will check liver panel and GGT. Discussed with patient again low FODMAP diet. List of food recommended as well as list of food to avoid given to patient. Patient reports occasional constipation. Script for Colace sent to pharmacy. Increase fluid intake and activity to promote better bowel motility. Patient will follow-up in 3-4 months, sooner on as needed basis. She is agreeable to this plan and verbalizes understanding of instructions. She was given the opportunity to ask questions all questions answered. Thank you for allowing me to participate in her care Orders: Orders Liver Panel Today R10.11 - Right upper quadrant pain Gamma Glutamyl Transpeptidase Today R10.11 - Right upper quadrant pain NM hepatobiliary w pharm Today R10.11 - Right upper quadrant pain Medications: New docusate sodium 100 mg PO BEDTIME 90 caps 3RF K59.00 - Constipation, unspecified Coding Level of Care Code Est Pt Level 4 (82788) Complex EM visit Add On G2211 Diagnoses Slow transit constipation K59.01 Constipation type: slow transit constipation Rectal bleed K62.5 Postprandial epigastric pain R10.13 Postprandial abdominal pain in right upper quadrant R10.11 Postprandial abdominal bloating R14.0 Time Spent (min) 35 Comment 25 minutes spent with patient and additional 15 minutes spent reviewing her records
--- OUTSIDE RECORDS SUMMARY | 2024-08-28 18:34 | XMS_ITS | Encounter Summary ---
Author Organization [employer] Address [address] [place] [address] [facility] [place] [address] Care Team Providers Care Renewal Specialist Name Role Phone Alexi Self MD Primary Care Provider Olena Buitrago MD Primary Care Pro vider Encounter Details Date Type Department Care Team (Latest Contact Info) Description 09/26/2020 Abstract [facility] CONVERSIONS Dental, Provider, DDS Social History [...] Care Team (Late st Contact Info) Description 09/19/2024 3:00 PM EDT Nutrition [facility] DIABETES/NUTRITION [address] [place] [address] [address]any Jc, RD [address] [place] [address] 01/04/2025 3:00 PM EDT Office Visit [facility] ADULT DENTAL [address] [place] [address] Leydi Harrington documented as of this encounter Visit Diagnoses Not on filedocumented in this encounter Care Teams Renewal Specialist Relationship Specialty Start Date End Date Alexi Self MD PCP - General Family Medicine 10/20/19 10/06/22 Olena Ramsay MD [address] [place] [address] PCP - General Internal Medicine 10/07/22 documented as of this encounter
--- OUTSIDE RECORDS SUMMARY | 2024-08-28 18:34 | XMS_ITS | Encounter Summary ---
Author Organization [employer] Address [address] [place] [address] [facility] [place] [address] Care Team Providers Care Plug Making Operator Name Role Phone Alexi Self MD Primary Care Provider Olena Buitrago MD Primary Care Pro vider Encounter Details Date Type Department Care Team (Latest Contact Info) Description 06/08/2019 Abstract [facility] CONVERSIONS Dental, Provider, DDS Social History [...] Info) Description 09/19/2024 3:00 PM EDT Nutrition [facility] DIABETES/NUTRITION [address] [place] [address] [address], RD [address] [place] [address] 01/04/2025 3:00 PM EDT Office Visit [facility] ADULT DENTAL [address] [place], [place] [phone] Leydi Harrington documented as of this encounter Visit Diagnoses Not on filedocumented in this encounter Care Teams Plug Making Operator Relationship Specialty Start Date End Date Alexi Self MD PCP - General Family Medicine 10/20/19 10/06/22 Olena Ramsay MD [address] [place] [address] PCP - General Internal Medicine 10/07/22 documented as of this encounter
--- OUTSIDE RECORDS SUMMARY | 2024-08-28 18:34 | XMS_ITS | Encounter Summary ---
Author Organization [employer] Address [address] [facility] 7 [place] [address] Care Team Providers Care Oracle Software Engineer Name Role Phone Olena Ramsay MD Primary Care Pro vider Reason for Visit * Reason Onset Date Comments appt for OS 06/27/2024 Encounter Details Date Type Department Care Team ([facility] st Contact Info) Description 06/27/2024 Telephone [facility] ADULT DENTAL [address] [place] [address] Odell Link, DMD [address] [place] [address] appt for OS Social History Tobacco Use [...] Description 09/19/2024 3:00 PM EDT Nutrition [facility] DIABETES/NUTRITION [address] [place] [address] [address]phany J[address], RD [address] [place] [address] 01/04/2025 3:00 PM EDT Office Visit [facility] ADULT DENTAL [address] [place] [address] Leydi Harrington documented as of this encounter Visit Diagnoses Not on filedocumented in this encounter Additional Health Concerns Assessment Noted Time PHQ-9 Depression Total Score: 0 01/24/20 24 3:02 PM EDT documented as of this encounter Care Teams Oracle Software Engineer Relationship Specialty Start Date End Date Olena Ramsay MD [address] [place] [id number] PCP - General Internal Medicine 10/07/22 documented as of this encounter
--- OUTSIDE RECORDS SUMMARY | 2024-08-28 18:34 | XMS_ITS | Encounter Summary ---
Author Organization [employer] Address [address] [facility] 7 [place] [address] Care Team Providers Care Hotel Controller Name Role Phone Olena Ramsay MD Primary Care Pro vider Encounter Details Date Type Department Care Team ([facility] st Contact Info) Description 04/01/2023 Orders Only [facility] MEDICINE [address] [place], [place] [phone] Marianne Celis MD [address] [place] [address] Benign paroxysmal positional vertigo, unspecified laterality (Primary [...] Info) Description 09/19/2024 3:00 PM EDT Nutrition [facility] DIABETES/NUTRITION [address] [place] [id number] Stephany Jc, VEDA [address] [place] [address] 01/04/2025 3:00 PM EDT Office Visit [facility] ADULT DENTAL [address] [place] [address] Leydi Harrington documented as of this encounter Visit Diagnoses Diagnosis Benign paroxysmal positional vertigo, unspecified laterality- Primary documented in this encounter Additional Health Concerns Assessment Noted Time PHQ-9 Depression Total Score: 1 10/08/19 2:17 PM EDT documented as of this encounter Care Teams Hotel Controller Relationship Specialty Start Date End Date Olena Ramsay MD [address] [place] [id number] PCP - General Internal Medicine 10/07/22 documented as of this encounter
--- OUTSIDE RECORDS SUMMARY | 2024-08-28 18:34 | XMS_ITS | Encounter Summary ---
Author Organization [employer] Address [address] [facility] 7 [place] [address] Care Team Providers Care Sole Stapler Welt Name Role Phone Olena Ramsay MD Primary Care Pro vider Encounter Details Date Type Department Care Team ([facility] st Contact Info) Description 03/01/2024 Telephone [facility] MEDICINE [address] [place], [place] [phone] Olena Ramsay MD [address] [place] [address] Social History Tobacco Use Types Packs/Day Years [...] (apr). No appt available at this moment. Operations And Intelligence Assistant advised will send message. Contact pt at [phone] documented in this encounter Plan of Treatment Upcoming Encounters Date Type Department Care Team (Late st Contact Info) Description 09/19/2024 3:00 PM EDT Nutrition [facility] DIABETES/NUTRITION [address] [place] [id number] [place] [address] 01/04/2025 3:00 PM EDT Office Visit [facility] ADULT DENTAL [address] [place], [place] [phone] Leydi Harrington documented as of this encounter Visit Diagnoses Not on filedocumented in this encounter Additional Health Concerns Assessment Noted Time PHQ-9 Depression Total Score: 0 01/24/20 24 3:02 PM EDT documented as of this encounter Care Teams Sole Stapler Welt Relationship Specialty Start Date End Date Olena Ramsay MD [address] [place] [address] PCP - General Internal Medicine 10/07/22 documented as of this encounter
--- OUTSIDE RECORDS SUMMARY | 2024-08-28 18:34 | XMS_ITS | Clinical Summary ---
Author Organization [employer] Address [address] [place] [address] 7 [place] [address] Care Team Providers Care Lan Support Specialist Name Role Phone Olena Ramsay MD Primary Care Pro vider Allergies Active Allergy Reactions Criticality Noted Date Comments Apple Fruit Extract 06/14/2024 Apple Juice Itching Low 02/03/2021 Other reaction(s): Unknown [facility] Flavoring Agent (Non-Screening) Itching 10/07/2022 Prunus Persica Low 05/16/2023 Other reaction(s): Unknown Medications Sod Fluoride-Potas sium Nitrate 1.1-5 % pasteIndicatio ns:Dental caries [place] teeth for 2 minutes, morning and night. Spit, do not rinse. Do not eat or drink anything for 30 minutes following brushing. 112 g 3 4 08/10/19 25 Discontin ued(Other ) ulipristal (Allison) 30 mg tablet Take one tablet by mouth up to five days after sex. Do not use more than once per menstrual cycle. If repeat dose is needed in same cycle, please contact prescriber. 1 tablet 11 4 08/10/19 25 Discontin ued(Other ) omeprazole (PriLOSEC) [address] capsule CHIDI 1 C PSULA POR V A ORAL TODOS LOS D 4 08/10/19 25 Discontin ued(Other ) hydrocortisone (Anusol-HC) 2.5 % rectal cream APLIQUE RECTALLY TO HEMORRHOIDS 2 TO 4 TIMES A DAY NEEDED 4 08/10/19 25 Discontin ued(Other ) docusate sodium (Colace) 100 MG capsule TOME 2 C PSULAS POR V A ORAL TODOS LOS D AL ACOSTARSE 08/10/19 25 Discontin ued(Other ) Ascorbic Acid (vitamin C) 250 MG tablet Take 1 tablet (250 mg) by mouth every other day. 40 tablet 4 08/10/19 25 Discontin ued(Other ) ferrous gluconate (Fergon) 324 (38 Fe) MG tablet Take 1 tablet (324 mg) by mouth every other day. 40 tablet 4 08/10/19 25 Discontin ued(Other ) ibuprofen 600 MG tablet Take 1 tablet (600 mg) by mouth 3 times daily for 10 days. 30 tablet 5 08/10/19 25 Discontin ued(Other ) amoxicillin (Amoxil) 500 MG capsule Take 1 capsule (500 mg) by mouth every 8 (eight) hours for 7 days. 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 The right ovary contains a cyst as with apparent suggestive of a corpus luteal cyst. ---> pt w her DRUM DYEING MACHINE OPERATOR x this Overweight (BMI 25.0-29.9) 10/07/2022 Assessment & Plan (11/05/2022 7:02 PM EDT): Advised pt to improve diet and exercise,discussed healthy life style -discussed can closing machine operator referral -wants to hold on referral x now Assessment & Plan (10/07/2022 5:23 PM EDT): Advised pt to improve diet and exercise,discussed healthy life style -discussed can closing machine operator referral -wants to hold on referral x now BPPV (benign paroxysmal positional vertigo) 10/2022 Assessment & Plan (11/05/2022 7:04 PM EDT): Pt clinically and from exam w BPPV w normal neuro exam and Gadsden-Hallpike maneuver is casing vertigo but no nystagmus [...] will refer to ENT x further eval Resolved Problems Problem Noted Date Diagnosed Date Resolved Date Leukocytosis 06/28/2023 08/21/2023 S/P laparoscopic appendectomy 05/25/2023 08/09/2024 Raised TSH level 01/01/2017 08/09/2024 Assessment & Plan (11/05/2022 7:03 PM EDT): 10/2022 TSH 5.20 w normal T4 -will repeat TFT in 6 months Assessment & Plan (10/07/2022 5:24 PM EDT): -will check TSH and T4 today Encounters Date Type Department Care Team Description 08/28/2024 Orders Only [facility] PEDS [address] [place], [place] [phone] Karoline Damon 08/09/2024 2:45 PM EDT Office Visit [facility] MEDICINE [address] [place] [address] Olena Ramsay MD Overweight (BMI 25.0-29.9) (Primary Dx); Dietary counseling; Exercise counseling; Transaminitis; Skin tag; Health care maintenance 08/09/2024 Travel 08/07/2024 3:00 PM EDT Office Visit [facility] OPTOMETRY [address] [place], [place] [phone] Miguel Angel, Dana, OD Refractive amblyopia of right eye (Primary Dx); Regular astigmatism of both eyes; Examination of eyes and vision 08/07/2024 Travel 08/04/2024 Telephone [facility] MEDICINE [address] [place] [address] Olena Ramsay MD Appointment Confirmation 08/03/2024 Orders Only [address] [address] Olena Ramsay MD 08/02/2024 8:00 AM EDT Office Visit [facility] [address] [place] [address] Alyson Marcano, DDS 07/31/[address] [address] Olena Ramsay MD chart prep 07/28/2024 Patient Outreach [address] [address] Olena Ramsay MD Pre-visit Planning ([facility] screening was completed on 05/29/2024) 07/10/2024 Telephone [facility] [address] [place] [address] Alyson Marcano, DDS 07/10/2024 Telephone [facility] [address] [place] [address] Alyson Marcano, DDS Possible PA denial wisdom teeth ext 06/27/2024 Telephone [facility] ADULT DENTAL [address] [place] [phone] Odell Link DMD appt for OS 06/14/2024 3:15 PM EST Office Visit [facility] [address] [place] [address] Alyson Marcano, DDS 06/08/[address] [address] Wendy Aviles [place] chart prep 06/08/[address] [address] Wendy Aviles MA chart prep from Last 3 Months Immunizations Name Administration [...] Sign Reading Time Taken Comments Blood Pressure 100/59 08/09/2024 3:02 PM EDT Pulse 62 08/09/2024 3:02 PM EDT Temperature 36.6 ??C (97.8 ??F) 08/09/2024 3:02 PM ED T Respiratory Rate 20 08/09/2024 3:02 PM EDT Oxygen Saturation 98% 08/09/2024 3:02 PM EDT Inhaled Oxygen Concentration - - Weight 67.9 kg (149 lb 12.8 oz) 08/09/2024 3:02 PM EDT Height 154.9 cm (5' 1 ) 08/09/2024 3:02 PM EDT Body Mass Index 28.3 08/09/2024 3:02 PM EDT Plan of Treatment Upcoming Encounters Date Type Department Care Team (Late st Contact Info) Description 09/19/2024 3:00 PM EDT Nutrition [facility] DIABETES/NUTRITION [address] [place] [address] Stephany Jc, RD [address] [place], [place] [phone] 01/04/2025 3:00 PM EDT Office Visit [facility] ADULT DENTAL [address] [place], [place] [phone] Leydi Harrington Health Maintenance Due Date Last Done Comments Dental Oral Exam 12/10/2023 06/10/2023, , 03/02/2017, Additional history exists Dental Prophylaxis 12/10/2023 06/10/2023, 0 09/26/2020, 06/08/2019, Additional history exists COVID-19 Vaccine ( season) 2024 10/07/2022, 10/24/2020, 10/03/2020 Dental X-Ray: Bitewings 06/11/2024 06/10/19 24, 09/26/2020, 03/10/2019, Additional history exists Depression Screening 01/23/2025 01/24/2024, 01/24/20 Family Planning (PISQ) 03/09/2025 03/09/2024 SDOH Screening 05/29/2025 05/29/2024 Tobacco Screening 08/02/2025 08/02/2024 Alcohol/Substance Use Screening 08/09/2025 08/09/2024 Dental X-Ray: Full Mouth 06/11/2026 024, 02/25/2023, 03/10/2019, Additional history exists DTaP/Tdap/Td Vaccines (2 - Td or Tdap) 06/22/2028 06/22/2018 Cervical Cancer Screening 03/09/2029 HPV/Cotest 03/09/2029 03/09/2024 Pap Smear 03/09/2029 03/09/2024, 03/05/2021 Zoster Vaccines (1 of 2) 12/03/2043 RSV Patients and Patients Aged 60 years or older (1 - 1-dose 75+ series) 2068 Hepatitis B Vaccines Completed 05/10/2023, 12/07/2022, 11/05/2022 HPV Vaccines Completed 06/16/2023, 01/02, 11/26/2022 Influenza Vaccine Completed 01/24/2024, 02/26/2021 HIV Screening Completed 08/03/2024, 0610/2022, 04/10/2019 Hepatitis C Screening Completed 08/03/2024 , 10/07/2022, 04/10/2019 HIB Vaccines Aged Out No longer eligi [...] Procedure Name Priority Date/Time Associated Diagnosis Comments HEPATIC FUNCTION PANEL Routine 4:41 PM EDT FERRITIN Routine 08/03/2024 8:38 AM EDT IRON AND TOTAL IRON BINDING CAPACITY Routine 08/03/2024 8:38 AM EDT Annual physical exam T4, FREE Routine 08/03/2024 8:38 AM EDT Annual physical exam TSH Routine 08/03/2024 8:38 AM EDT Annual physical exam SYPHILIS SCREEN Routine 08/03/2024 8:38 AM EDT Annual physical exam LIPID PANEL, STANDARD Routine 08/03/2024 8:38 AM EDT Annual physical exam HIV 1/2 ANTIGEN/ANTIBODY, FOURTH GENERATION W/RFL Routine 08/03/2024 8:38 AM EDT Annual physical exam HEPATITIS C AB W/REFL TO HCV RNA, QN, PCR Routine 08/03/2024 8:38 AM EDT Annual physical exam HEPATITIS B SURFACE ANTIGEN, EIA Routine 08/03/2024 8:38 AM EDT Annual physical exam HEPATITIS B SURFACE ANTIBODY, QUALITATIVE Routine 08/03/2024 8:38 AM EDT Annual physical exam HEPATITIS B CORE AB TOTAL Routine 08/03/2024 8:38 AM EDT Annual physical exam HEMOGLOBIN A1C Routine 08/03/2024 8:38 AM EDT Annual physical exam COMPREHENSIVE METABOLIC PANEL Routine 08/03/2024 8:38 AM EDT Annual physical exam CBC Routine 08/03/2024 8:38 AM EDT Annual physical exam CHLAMYDIA/N. GONORRHOEAE RNA, TMA, UROGENITAL Routine 08/03/2024 8:38 AM EDT Annual physical exam 1 EXTRACTION, ERUPTED TOOTH OR EXPOSED ROOT (ELEVATION/FORCEPS REMOVAL) Routine 08/02/2024 8:00 AM EDT 16 REMOVAL OF IMPACTED TOOTH - SOFT TISSUE Routine 08/02/2024 8:00 AM EDT CONSULTATION - DIAGNOSTIC SERVICE PROVIDED BY DENTIST OR PHYSICIAN OTHER THAN REQUESTING DENTIST OR PHYSICIAN Routine 06/14/2024 3:15 PM EST HPV MRNA E6/E7 REFLEX TO HPV 16, 18/45 Routine 03/09/2024 12:00 AM EST PAP SMEAR Routine 03/09/2024 12:00 AM EST Cervical cancer screening PROPHYLAXIS - ADULT Routine 06/10/2023 2 :30 PM EST Dental caries Gingivitis INTRAORAL - COMPLETE SERIES OF RADIOGRAPHIC IMAGES Routine 06/10/2023 2:30 PM EST Dental caries Gingivitis PERIODIC ORAL EVALUATION - ESTABLISHED PATIENT Routine 06/10/2023 2:30 PM EST Dental caries Gingivitis from Last 3 Months or Most Recently Relevant to Health Maintenance Results * Syphilis Screen (08/03/2024 8:38 AM EDT) Pathologist [facility] Syphilis Screen Nonreactive Nonreactive [facility] Blood 08/03/2024 8:3 8 AM EDT 08/03/2024 11:28 AM EDT us Olena Jorge MD LAB BLOOD ORDERAB LES Final Result Performing Organization Address [facility] Co de Phone Number [facility] [address] [place] [phone] * Hepatitis C Antibody with Reflex to HCV, RNA, Quantitative, Real-Time PCR (08/03/2024 8:38 AM EDT) [facility] Hepatitis C Antibody Nonreactive Nonreactive [facility] Comment:Antibodies to HCV no t detected; does not exclude early acuteHCV infection. Blood Venous blood specimen / Unknown 08/03/2024 8:38 AM EDT 08/03/2024 11:28 AM EDT us Olena Jorge MD LAB BLOOD ORDERAB LES Final Result Performing Organization Address [facility]/ZIP Co de Phone Number [facility] [address] [place] [phone] * Iron And Total Iron Binding Capacity (08/03/2024 8:38 AM EDT) Iron 141 30 - 160 mcg/dL [facility] Total Iron Binding Capacity 357 228 - 428 mcg/dL [facility] Percent Iron Saturation 39 15 - 50 % [facility] Unsaturated Iron Binding 216 ug/dL [facility] Blood Venous blood specimen / Unknown 08/03/2024 8:38 AM EDT 08/03/2024 11:28 AM EDT Olena Jorge MD LAB BLOOD ORDERAB LES Final Result [facility] [address] [place] [address] [phone] * Chlamydia/N. Gonorrhoeae RNA, TMA, Urogenitial (08/03/2024 8:38 AM EDT) [facility] CT PCR NOT DETECTED Not Detect. [facility] Comment:A not detected test result does not exclude the possibilityof infection because test results can be affected byimproper specimen collection, concurrent antibiotic therapy,or the number of organisms in the specimen which may bebelow the sensitivity of the test. As with many diagnostictests, results from the Xpert CT/NG assay should beinterpreted in conjunction with other laboratory andclinical data available to the clinician.Xpert CT/NG performance has not been evaluated in patientsless than 14 years of age. The assay should not be used forthe evaluationof suspected sexual abuse or for other medico-legalindications. Additional testing is recommended in anycircumstance when false positive or false negative resultscould lead to adverse medical, social or psychologicalconsequences. NG PCR NOT DETECTED Not Detect. [facility] Comment:A not detected test result does not exclude the possibilityof infection because test results can be affected byimproper specimen collection, concurrent antibiotic therapy,or the number of organisms in the specimen which may bebelow the sensitivity of the test. As with many diagnostictests, results from the Xpert CT/NG assay should beinterpreted in conjunction with other laboratory andclinical data available to the clinician.Xpert CT/NG performance has not been evaluated in patientsless than 14 years of age. The assay should not be used forthe evaluationof suspected sexual abuse or for other medico-legalindications. Additional testing is recommended in anycircumstance when false positive or false negative resultscould lead to adverse medical, social or psychologicalconsequences. Urine Urethral structure / Unknown 08/03/2024 8:38 AM EDT 08/03/2024 11:21 AM EDT Narrative [facility] - 08/03/2024 3:32 PM EDT Urine us Olena Jorge MD LAB MICROBIOLOGY - GENERAL ORDERABLES Final Result Performing Organization Address [facility] Co de Phone Number [facility] [address] [place] [phone] * Hepatitis B surface antigen, EIA (08/03/2024 8:38 AM EDT) Hepatitis B Surface Ag Negative Negative [facility] Blood Venous blood specimen / Unknown 08/03/2024 8:38 AM EDT 08/03/2024 11:28 AM EDT us Olena Jorge MD LAB BLOOD ORDERAB LES Final Result Performing Organization Address [facility] Co de Phone Number [facility] [address] [place] [phone] * Hepatitis B Core Antibody, Total (08/03/2024 8:38 AM EDT) Hepatitis B Core Antibody Nonreactive Nonreactive [facility] Blood Venous blood specimen / Unknown 08/03/2024 8:38 AM EDT 08/03/2024 11:28 AM EDT us Olena Jorge MD LAB BLOOD ORDERAB LES Final Result Performing Organization Address [facility] Co de Phone Number [facility] [address] [place] [phone] * HIV-1/2 Antigen and Antibodies, Fourth Generation, with Reflexes (08/03/2024 8:38 AM EDT) [facility] HIV AB/AG Nonreactive Nonreactive [facility] Comment:HIV-1 p24 Ag and/or HIV-1/HIV-2 Ab not detected.A test result that is nonreactive does not exclude thepossibility of exposure to or infection with HIV-1 and/orHIV-2. Nonreactive results in this assay for individualswith prior exposure to HIV-1 and/or HIV-2 may be due toantigen and antibody levels that are below the limit ofdetection of this assay.The [employer] HIV Ag/Ab Combo assay result andsupplemental assay results should be interpreted inconjunction with the patient's clinical presentation,history and other laboratory results. If the results areinconsistent with clinical evidence, additional testing issuggested to confirm the result. Blood Venous blood specimen / Unknown 08/03/2024 8:38 AM EDT 08/03/2024 11:28 AM EDT us Olena Jorge MD LAB BLOOD ORDERAB LES Final Result [facility] [address] [place] [phone] * Hepatitis B Surface Antibody, Qualitative (08/03/2024 8:38 AM EDT) [facility] ~Hepatitis B Surface Antibody REACTIVE Nonreactive [facility] Comment:REACTIVE: > 11.99 mI U/mL Blood Venous blood specimen / Unknown 08/03/2024 8:38 AM EDT 08/03/2024 11:28 AM EDT us Olena Jorge MD LAB BLOOD ORDERAB LES Final Result Performing Organization Address City/[facility]/ZIP Co de Phone Number [facility] [address] [place] [phone] * (ABNORMAL) CBC (08/03/2024 8:38 AM EDT) White Blood Count 9.1 4.8 - 10.8 X10*3/uL [facility] Red Blood Count 4.17(L) 4.20 - 5.50 X10*6/uL [facility] Hemoglobin 13.3 12.0 - 16.0 g/dl [facility] Hematocrit 38.5 37.0 - 47.0 % [facility] Mean Corpuscular Volume 92.3 80.0 - 98.0 fL [facility] Mean Corpuscular Hemoglobin 31.9 27.0 - 33.0 pg [facility] Mean Corpuscular HGB Conc 34.5 31.0 - 35.0 g/dl [facility] Red Cell Distribution Width 11.8 11.0 - 16.0 % [facility] Platelet Count 268 160 - 400 X10*3/uL [facility] Mean Platelet Volume 9.4 9.4 - 12.3 fL [facility] NRBC Pct Auto 0.0 0.0 - 0.2 /100WBC [facility] NRBC Abs Auto 0.000 0.0 - 0.012 X10*3/uL [facility] Blood Venous blood specimen / Unknown 08/03/2024 8:38 AM EDT 08/03/2024 11:28 AM EDT us Olena Jorge MD LAB BLOOD ORDERAB LES Final Result [facility] [address] [place] [phone] [phone] * TSH (08/03/2024 8:38 AM EDT) Thyroid Stimulating Hormone 2.67 0.32 - 4.0 uIU/mL [facility] Comment:Note: A sustained TS H level above 2.5 uIU/mL may warrant further investigation. TSH 3rd Generation ([facility]) Blood Venous blood specimen / Unknown 08/03/2024 8:38 AM EDT 08/03/2024 11:28 AM EDT Olena Jorge MD LAB BLOOD ORDERAB LES Final Result Performing Organization Address City/[facility]/ZIP Co de Phone Number [facility] [address] [place] [phone] * T4, Free (08/03/2024 8:38 AM EDT) Free T4 (Free Thyroxine) 0.85 0.71 - 1.85 ng/dL [facility] Blood Venous blood specimen / Unknown 08/03/2024 8:38 AM EDT 08/03/2024 11:28 AM EDT Olena Jorge MD LAB BLOOD ORDERAB LES Final Result Performing Organization Address [facility] Co de Phone Number [facility] [address] [place] [phone] * Hemoglobin A1c (08/03/2024 8:38 AM EDT) Pathologist [facility] Hemoglobin A1c 5.3 <6.0 % [facility] Comment:Hemoglobin A1C Refer ence Range Adults: 4.8 - 6.0 % Non diabetic: < 6.0 % Goal: < 7.0 %Additional Action Suggested: > 8.0 %Note: Hemoglobin A1c results are invalid for patients with abnormal amounts of HbF. Blood transfusions may impact the HbA1c concentration in the patient sample. Estimated Average Glucose 105 mg/dL [facility] Comment:eAG = Estimated ave rage glucose which is %A1C expressed asaverage glucose, using the formula of the H8M-PgmtsukTcwghxq Glucose study (ADAG), Diabetes Care, Vol.31,#8,Dec. 2007 Blood Venous blood specimen / Unknown 08/03/2024 8:38 AM EDT 08/03/2024 11:28 AM EDT Olena Jorge MD LAB BLOOD ORDERAB LES Final Result [facility] [address] [place] [address] [phone] * Ferritin (08/03/2024 8:38 AM EDT) Ferritin 43 10 - 122 ng/mL [facility] 08/03/2024 8:38 AM EDT 08/03/2024 11:28 AM EDT us Olena Jorge MD LAB BLOOD ORDERAB LES Final Result Performing Organization Address City/[facility] Co de Phone Number [facility] [address] [place] [address] [phone] * (ABNORMAL) Lipid Panel, Standard (08/03/2024 8:38 AM EDT) Triglycerides 85 <150 mg/dL [facility] Comment:Desirable Triglyceri de: less than 150 mg/dLBorderline High Triglyceride 150-199 mg/dLHigh Triglyceride: 200-499 mg/dLVery High Triglyceride: greater than or equal to 5OO mg/dL Cholesterol 103 <200 mg/dL [facility] Comment:Desirable Cholestero l: less than 200 mg/dLBorderline High Cholesterol: 200-239 mg/dLHigh Cholesterol: greater than 239 mg/dL LDL Cholesterol Calculated 52 <100 mg/dL [facility] Comment:Desirable LDL: less than 100 mg/dLNear Optimal/Above Optimal LDL: 110- 129 mg/dLBorderline High LDL: 130-159 mg/dLHigh LDL: 160-189 mg/dLVery High LDL: greater than or equal to 190 mg/dL HDL Cholesterol 34(L) >40 mg/dL [facility] Comment:Desirable HDL: great er than 40 mg/dL Note: This HDL assay may give artificially low results in patients with liver disease. Blood Venous blood specimen / Unknown 08/03/2024 8:38 AM EDT 08/03/2024 11:28 AM EDT us Olena Jorge MD LAB BLOOD ORDERAB LES Final Result [facility] [address] [place] [phone] * (ABNORMAL) Comprehensive Metabolic Panel (08/03/2024 8:38 AM EDT) Sodium 139 135 - 145 mmol/L [facility] Potassium 3.8 3.3 - 5.1 mmol/L [facility] Chloride 112(H) 96 - 108 mmol/L [facility] Carbon Dioxide 23 22 - 29 mmol/L [facility] Anion Gap 8(L) 12 - 20 [facility] Urea Nitrogen (BUN) 8(L) 9 - 16 mg/dL [facility] Creatinine, Serum 0.58 0.5 - 1.4 mg/dL [facility] Estimated Glomerular Filt Rate >60 [facility] Comment:Chronic Kidney Disea se: Estimated GFR < 60 mL/min/1.76f8Hwtzbe Kidney Disease: Estimated GFR < 15 mL/min/1.73m2 Glucose 85 60 - 115 mg/dL [facility] Calcium 8.9 8.4 - 10.2 mg/dL [facility] Bilirubin, Total 0.7 0.0 - 1.0 mg/dL [facility] Aspartate Amino Transferase 31 5 - 31 U/L [facility] Alanine Aminotransferase 40(H) 0 - 31 U/L [facility] Total Protein 7.1 6.5 - 8.0 g/dL [facility] Albumin Level 4.2 3.5 - 5.0 g/dL [facility] Alkaline Phosphatase 82 39 - 117 U/L [facility] Blood Venous blood specimen / Unknown 08/03/2024 8:38 AM EDT 08/03/2024 11:28 AM EDT us Olena Jorge MD LAB BLOOD ORDERAB LES Final Result [facility] [address] [place] [address] [phone] * HPV mRNA E6/E7 w/Reflex to HPV Genotypes 16, 18/45 (03/09/2024 12:00 AM EST) us Historical Provider MD LAB CYTOLOGY ORDERABLES F inal Result [facility] [address] [place] [address] [phone] * Pap Smear (03/09/2024 12:00 AM EST) Swab Cervix uteri structure / Unknown 03/09/2024 03/10/2024 10:20 AM EST Narrative [facility] - 03/14/2024 10:28 AM EST ----- ------- Name: Laury Zapata ?Age/Sex: 28/F ? : 1995 Unit#: [id number] ?? Attend Dr: ?Re03/09/24 ?Status: PRE REF ? Location: HO.LNP ?Disch: ? ----- ------- SPEC : [id number] ?RECD: 03/10/24 ? STATUS: ??SOUT ? REQ NUM: [id number] ? ALISSA: 03/09/24-0000 ? SUBM DR: BEE LAWRENCE CNM ? ENTERED: ??03/10/24 ?SP TYPE: Pap Smr ?OTHR : ? [...] ------- Signed (signature on file) HERNESTO Trejo ([facility]) 03/14/24 1028 ? ----- ------- ? END OF REPORT ? us Bee Lawrence [facility] LAB CYTOLOGY ORDERABLES F inal Result [facility] [address] [place] [address] [phone] from Last 3 Months or Most Recently Relevant to Health Maintenance Insurance [facility] ADULT DENTAL - HSN FULL (MEDICAID) Care Teams Lan Support Specialist Relationship Specialty Start Date End Date Olena Ramsay MD [address] [place] [address] [phone] PCP - General Internal Medicine 10/07/22
--- OUTSIDE RECORDS SUMMARY | 2024-08-28 18:34 | XMS_ITS | Encounter Summary ---
Author Organization [employer] Address [address] [place] [address] 7 [place] [address] Care Team Providers Care Battery Builder Name Role Phone Alexi Self MD Primary Care Provider Olena Buitrago MD Primary Care Pro vider Encounter Details Date Type Department Care Team (Late st Contact Info) Description 04/21/2022 [facility] Health Information Management [address] [place] [address] Karolyn Betancur, RAISIN WASHER [address] [place] [address] Social History Tobacco Use Types Packs/Day Years [...] Description 09/19/2024 3:00 PM EDT Nutrition [facility] DIABETES/NUTRITION [address] [place] [address] [place] [address] 01/04/2025 3:00 PM EDT Office Visit [facility] ADULT DENTAL [address] [place] [address] Leydi Harrington documented as of this encounter Visit Diagnoses Not on filedocumented in this encounter Care Teams Battery Builder Relationship Specialty Start Date End Date Alexi Self MD PCP - General Family Medicine 10/20/19 10/06/22 Olena Ramsay MD [address] [place] [phone] PCP - General Internal Medicine 10/07/22 documented as of this encounter
--- OUTSIDE RECORDS SUMMARY | 2024-08-28 18:34 | XMS_ITS | Encounter Summary ---
Author Organization [employer] Address [address] [facility] 7t [place] [address] Care Team Providers Care Burner Machine Operator Name Role Phone Olena Ramsay MD Primary Care Pro vider Encounter Details Date Type Department Care Team ([facility] st Contact Info) Description 08/28/2024 Orders Only [facility] CHC MED & PEDS [address] [place], [place] [phone] Karoline Damon Social History Tobacco Use Types Packs/Day Years [...] Info) Description 09/19/2024 3:00 PM EDT Nutrition [facility] DIABETES/NUTRITION 230 [place] [address] Stephany Jc, VEDA 230 [place] [address] 01/04/2025 3:00 PM EDT Office Visit [facility] ADULT DENTAL [address] [place] [address] Leydi Harrington Pending Results Name Type Priority Associated Diagnoses Date /Time Hepatic Function Panel Lab Routine 4:41 PM EDT documented as of this encounter Procedures Procedure Name Priority Date/Time Associated Diagnosis Comments HEPATIC FUNCTION PANEL Routine 08/28/2024 4:41 PM EDT HPV MRNA E6/E7 REFLEX TO HPV 16, 18/45 Routine 03/09/2024 12:00 AM EST documented in this encounter Results * HPV mRNA E6/E7 w/Reflex to HPV Genotypes 16, 18/45 (03/09/2024 12:00 AM EST) us Historical Provider LAB CYTOLOGY ORDERABLES F inal Result [facility] [address] [place] [phone] documented in this encounter Visit Diagnoses Not on filedocumented in this encounter Additional Health Concerns Assessment Noted Time PHQ-9 Depression Total Score: 0 01/24/20 24 3:02 PM EDT documented as of this encounter Care Teams Burner Machine Operator Relationship Specialty Start Date End Date Olena Ramsay MD [address] [place] [phone] PCP - General Internal Medicine 10/07/22 documented as of this encounter
--- OUTSIDE RECORDS SUMMARY | 2024-08-28 18:34 | XMS_ITS | Encounter Summary ---
Author Organization [employer] Address [address] [place] [address] [place] [address] Care Team Providers Care Lumber Inspector Name Role Phone Olena Ramsay MD Primary Care Pro vider Reason for Visit * Reason Onset Date Comments Results 06/08/2023 Encounter Details Date Type Department Care Team ([facility] st Contact Info) Description 06/08/2023 Telephone [facility] MEDICINE [address] [place], [place] [phone] Olena Ramsay MD [address] [place] [address] Results Social History Tobacco Use Types Packs/Day [...] CT scan Date when done: 05/16 Facility: [facility] Please contact pt at [phone] (Mexican) documented in this encounter Plan of Treatment Upcoming Encounters Date Type Department Care Team (Late st Contact Info) Description 09/19/2024 3:00 PM EDT Nutrition [facility] DIABETES/NUTRITION [address] [place], [place] [phone] Stephany Jc, VEDA [address] [place] [address] 01/04/2025 3:00 PM EDT Office Visit [facility] ADULT DENTAL [address] [place], [place] [phone] Leydi Harrington documented as of this encounter Visit Diagnoses Not on filedocumented in this encounter Additional Health Concerns Assessment Noted Time PHQ-9 Depression Total Score: 1 10/08/19 2:17 PM EDT documented as of this encounter Care Teams Lumber Inspector Relationship Specialty Start Date End Date Olena Ramsay MD [address] [place], [place] [phone] PCP - General Internal Medicine 10/07/22 documented as of this encounter
== END 2024-08-28 16:33 | disposition home or self-care (01) ==
LOC: HO.HGI 15:50
PROVIDERS: PCP Student in an Organized Health Care Education/Training Program; Visit Provider Nurse Practitioner Family
DX: K59.01 Slow transit constipation (principal); K62.5 Hemorrhage of anus and rectum; R10.13 Epigastric pain; R10.11 Right upper quadrant pain; R14.0 Abdominal distension (gaseous)
CPT/HCPCS: 99214; G2211

== ENCOUNTER → 2024-09-29 07:55 | Outpatient (REF) | payer OTHER, SELFPAY ==
--- NOTE | ~2024-09-29 | NM_ITS ---
EXAMINATION: NM BILIARY TRACT CLINICAL INFORMATION: Right upper quadrant pain. COMPARISON: None available. TECHNIQUE: Following intravenous administration of 5 mCi of technetium 99m mebrofenin, imaging over right upper quadrant was obtained up to 60 minutes. At 60 minutes 1.3 mcg of CCK was injected with 30 minutes and imaging obtained for 30 minutes. FINDINGS: There is normal hepatic uptake without any focal defect. There is prompt visualization of gallbladder by 10 minutes and small bowel by 20 minutes. Post-CCK the gallbladder ejection fraction, At 10 minutes is 14%, At 20 minutes is 46%, At 30 minutes is 60% NM/NM hepatobiliary w pharm IMPRESSION: Normal hepatic uptake. Patent CBD and cystic duct. Normal gallbladder ejection fraction of 68% at 30 minutes. Electronically signed by: Cosmo Emmanuel MD 09/29/2024 10:49 AM EDT
--- OUTSIDE RECORDS SUMMARY | 2024-09-29 07:56 | XMS_ITS | Encounter Summary ---
Author Organization [employer] Address [address] [place] [address] 7 [place] [address] Care Team Providers Care Postulant Name Role Phone Olena Ramsay MD Primary Care Pro vider Reason for Visit * Reason Onset Date Comments appt for OS 06/27/2024 Encounter Details Date Type Department Care Team ([facility] st Contact Info) Description 06/27/2024 Telephone [facility] ADULT DENTAL 230 [place] [address] Odell Link, DMD [address] [place] [address] appt for OS Social History Tobacco Use [...] is your housing situation today? I have tristonrene bah 11/11/[address] you [...] Care Team (Late st Contact Info) Description 10/30/2024 3:00 PM EDT Clinical Support [facility] DIABETES/NUTRITION 230 [place] [address] [address] Jc, RD [address] [place] [address] 01/04/2025 3:00 PM EDT Office Visit [facility] ADULT DENTAL 230 [place] [address] Leydi Harrington documented as of this encounter Visit Diagnoses Not on filedocumented in this encounter Additional Health Concerns Assessment Noted Time PHQ-9 Depression Total Score: 0 01/24/20 24 3:02 PM EDT documented as of this encounter Care Teams Postulant Relationship Specialty Start Date End Date Olena Ramsay MD [address] [place] [phone] PCP - General Internal Medicine 10/07/22 documented as of this encounter
== END ==
LOC: HO.NUCMED 07:55
PROVIDERS: PCP Student in an Organized Health Care Education/Training Program; Visit Provider Nurse Practitioner Family
DX: R10.11 Right upper quadrant pain (principal)
CPT/HCPCS: 78227; A9537; J2805

== ENCOUNTER → 2024-09-29 07:56 | Outpatient (BNV) | payer OTHER, SELFPAY | PROVIDERS: PCP Student in an Organized Health Care Education/Training Program; Visit Provider Radiology Diagnostic Radiology | DX: R10.11 Right upper quadrant pain (principal) | CPT/HCPCS: 78227 ==

== ENCOUNTER 2025-01-26 09:36 | Outpatient (REF) | payer OTHER, SELFPAY ==
--- OUTSIDE RECORDS SUMMARY | 2025-01-26 09:00 | XMS_ITS | Encounter Summary ---
Author Organization [employer] Address [address] [place] [address] Care Team Providers Care Websphere Portal Developer Name Role Phone Olena Ramsay MD Primary Care Pro vider Encounter Details Date Type Department Care Team ([facility] st Contact Info) Description 01/26/2025 9:00 AM EDT Office Visit [facility] MEDICINE [address] [place], [place] [phone] Olena Ramsay MD [address] [place] [address] Annual physical exam (Primary Dx); Encounter for immunization Social History Tobacco Use Types Packs/Day Years Used Date Smoking Tobacco: Never Passive Smoke Exposure: Never Smokeless Tobacco: Never Tobacco Cessation:Counseling Given: Not Answered Alcohol Use Standard Drinks/Week Comments Not Currently 0 (1 standard drink = 0.6 oz pur e alcohol) Depression Answer Date Recorded Patient Health Questionnaire-9 Score 0 01/26/2025 Patient Health Questionnaire-9 Score 0 01/26/2025 Last PHQ-9: Questionnaire Data Not on file 0 01/26/2025 Housing Stability Answer Date Recorded What is [...] Date Recorded Patient Health Questionnaire-2 Score 0 01/26/2025 Internet Access Answer Date Recorded Internet Access [...] Sign Reading Time Taken Comments Blood Pressure 106/70 01/26/2025 9:08 AM EDT Pulse 66 01/26/2025 9:08 AM EDT Temperature 36.2 C (97.1 F) 01/26/2025 9:08 AM EDT Respiratory Rate 20 01/26/2025 9:08 AM EDT Oxygen Saturation 98% 01/26/2025 9:08 AM EDT Inhaled Oxygen Concentration - - Weight 64.9 kg (143 lb) 01/26/2025 9:08 AM EDT Height 154.9 cm (5' 1 ) 01/26/2025 9:08 AM EDT Body Mass Index 27.02 01/26/2025 9:08 AM EDT documented in this encounter Functional Status * Over the past 2 weeks, how often have you been bothered by any of the following problems? Question Answer Date of Assessment Author Patient Health Questionnaire -2 Score 0 01/26/2025 9:09 AM EDT Nita Metz [place] * Little interest or pleasure in doing things Answer Date of Assessment Author Not at all 01/26/2025 9:09 AM EDT Dipti Metz MA * Feeling down, depressed, or hopeless Answer Date of Assessment Author Not at all 01/26/2025 9:09 AM Dipti Fine [place] * Trouble falling or staying asleep, or sleeping too much Answer Date of Assessment Author Not at all 01/26/2025 9:09 AM Dipti Fine [place] * Feeling tired or having little energy Answer Date of Assessment Author Not at all 01/26/2025 9:09 AM Dipti Fine [place] * Poor appetite or overeating Answer Date of Assessment Author Not at all 01/26/2025 9:09 AM Dipti Fine [place] * Feeling bad about yourself - or that you are a failure or have let yourself or your family down Answer Date of Assessment Author Not at all 01/26/2025 9:09 AM Dipti Fine MA * Trouble concentrating on things, such as reading the newspaper or watching television Answer Date of Assessment Author Not at all 01/26/2025 9:09 AM Dipti Fine MA * Moving or speaking so slowly that other people could have noticed? Or the opposite - being so fidgety or restless that you have been moving around a lot more than usual. Answer Date of Assessment Author Not at all 01/26/2025 9:09 AM Dipti Fine MA * Thoughts that you would be better off or hurting yourself in some way Answer Date of Assessment Author Not at all 01/26/2025 9:09 AM Dipti Fine MA * Patient Health Questionnaire-9 Score Answer Date of Assessment Author 0 01/26/2025 9:09 AM Dipti Fine MA * Over the last 2 weeks, how often have you been bothered by any of the following problems? Question Answer Date of Assessment Author Feeling nervous, anxious, or on edge 0 01/26/2025 9:09 AM Nita Fine MA Not being able to stop or co ntrol worrying 0 01/26/2025 9:09 AM Nita Fine MA Worrying too much about diff erent things 0 01/26/2025 9:09 AM EDT Nita Metz MA Trouble relaxing 0 01/26/2025 9:09 AM EDT Nita Nelson MA Being so restless that it is hard to sit still 0 01/26/2025 9:09 AM EDT Nita Metz MA Becoming easily annoyed or irritable 0 01/26/2025 9:09 AM EDT Nita Metz MA Feeling afraid as if somethi ng awful might happen 0 01/26/2025 9:09 AM EDT Nita Metz MA SHIRA-7 Total Score 0 01/26/2025 9:09 AM EDT Nita Metz MA documented as of this encounter Plan of Treatment Upcoming Encounters Date Type Department Care Team (Late st Contact Info) Description 02/12/2025 3:30 PM EDT Clinical Support [facility] DIABETES/NUTRITION [address] [place] [address] [address] Jc, RD [address] [place] [address] Scheduled Orders Name Type Priority Associated Diagnoses Orde r Schedule CBC auto differential Lab Routine Annual physical exam Expected: 01/26/2025 (Approximate), Expires: 01/26/2026 Chlamydia/Trichomonas/Neiss eria gonorrhoeae, PCR, Urine Lab Routine Annual physical exam Ordered: 01/26/2025 Comprehensive Metabolic Panel Lab Routine Annual physical exam Expected: 01/26/2025 (Approximate), Expires: 01/26/2026 Hemoglobin A1c Lab Routine Annual physical exam Expected: 01/26/2025 (Approximate), Expires: 01/26/2026 Hepatitis B surface antigen, EIA Lab Routine Annual physical exam Expected: 01/26/2025 (Approximate), Expires: 01/26/2026 Hepatitis C Antibody with Reflex to HCV, RNA, Quantitative, Real-Time PCR Lab Routine Annual physical exam Expected: 01/26/2025 (Approximate), Expires: 01/26/2026 HIV-1/2 Antigen and Antibodies, Fourth Generation, with Reflexes Lab Routine Annual physical exam Expected: 01/26/2025 (Approximate), Expires: 01/26/2026 Lipid Panel, Standard Lab Routine Annual physical exam Expected: 01/26/2025 (Approximate), Expires: 01/26/2026 Syphilis Screen Lab Routine Annual physical exam Expected: 01/26/2025 (Approximate), Expires: 01/26/2026 TSH with Reflex to Free T4 Lab Routine Annual physical exam Expected: 01/26/2025 (Approximate), Expires: 01/26/2026 documented as of this encounter Visit Diagnoses Diagnosis Annual physical exam- Primary Routine general medical examination at a health care facility Encounter for immunization documented in this encounter Additional Health Concerns Assessment Noted Time PHQ-9 Depression Total Score: 0 01/27/20 25 9:09 AM EDT documented as of this encounter Care Teams Websphere Portal Developer Relationship Specialty Start Date End Date Olena Ramsay MD [address] [place] [phone] PCP - General Internal Medicine 10/07/22 documented as of this encounter
--- OUTSIDE RECORDS SUMMARY | 2025-01-26 10:33 | XMS_ITS | Encounter Summary ---
Author Organization [employer] Address [address] [place] [address] Care Team Providers Care Children'S Entertainer Name Role Phone Alexi Self MD Primary Care Provider Olena Buitrago MD Primary Care Pro vider Encounter Details Date Type Department Care Team (Latest Contact Info) Description 06/08/2019 Abstract [facility] CONVERSIONS Dental, Provider, DDS Social History [...] Description 02/12/2025 3:30 PM EDT Clinical Support [facility] DIABETES/NUTRITION [address] [place] [address] [place] [address] documented as of this encounter Visit Diagnoses Not on filedocumented in this encounter Care Teams Children'S Entertainer Relationship Specialty Start Date End Date Alexi Self MD PCP - General Family Medicine 10/20/19 10/06/22 Olena Ramsay MD [address] [place], [place] [phone] PCP - General Internal Medicine 10/07/22 documented as of this encounter
--- OUTSIDE RECORDS SUMMARY | 2025-01-26 10:33 | XMS_ITS | Encounter Summary ---
Author Organization [facility] Address [address] [place] [phone] Phone Care Team Providers Care Drying Equipment Operator Name Role Phone Allison Siegel MD Primary Care Provider + Olena Ramsay MD Primary Care Pro vider Encounter Details Date Type Department Care Team (Late st Contact Info) Description 05/16/2023 Procedure Pass [facility], Ct Scan - [address] [address] Social History Tobacco Use Types Packs/Day Years Used Date Smoking Tobacco: Never Smokeless Tobacco: Never Alcohol Use Standard Drinks/Week Comments No 0 (1 standard drink = 0.6 oz pur e alcohol) Education Answer Date Recorded Are you interested in more education? Not on jonathan e 08/28/2022 Are you concerned about learning? Not on file 08/28/2022 No 08/28/2022 No 08/28/2022 Digital Access Answer Date Recorded No 09/25/2022 No 09/25/2022 Reliable internet access at home? Not on file 09/25/2022 Device with a working camera? Not on file Intimate Partner Violence Answer Date R ecorded Are you denied basic needs s uch as food, clothing, or medical care? No 05/16/2023 In the past 12 months have y ou been in a relationship with a person who hurts, threatens, or tries to control you? No 05/16/2023 Are you denied basic needs s uch as food, clothing, or medical care? No 05/16/2023 In the past 12 months have y ou been in a relationship with a person who hurts, threatens, or tries to control you? 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 Wish to be (Past 1 Month) No 05/16/2023 7:28 PM Helena Ramirez RN 2. Non-Specific Active Suicidal Thoughts (Past 1 Month) No 05/16/2023 7:28 PM Helena Ramirez RN 6. Suicidal Behavior (Lifetime) No 05/16/2023 7:28 PM Helena Ramirez RN documented as of this encounter Plan of Treatment Not on file documented as of this encounter Visit Diagnoses Not on filedocumented in this encounter Care Teams Drying Equipment Operator Relationship Specialty Start Date End Date Allison Siegel MD [address] [place] [phone] PCP - General Internal Medicine 05/04/18 05/24/23 Olena Ramsay MD [address] [place] [address] PCP - General Internal Medicine 05/25/23 documented as of this encounter Additional Source Comments The information contained in this document represents components of the legal health record. It is not the complete legal health record.[facility]
--- OUTSIDE RECORDS SUMMARY | 2025-01-26 10:33 | XMS_ITS | Encounter Summary ---
Author Organization [employer] Address [address] [facility] 7t [place] [address] Care Team Providers Care Small Business Banking Officer Name Role Phone Olena Ramsay MD Primary Care Pro vider Encounter Details Date Type Department Care Team ([facility] st Contact Info) Description 08/28/2024 Orders Only [facility] CHC MED & PEDS [address] [place], [place] [phone] Karoline Damon Social History Tobacco Use Types [...] as of this encounter Miscellaneous Notes * Result Encounter Note - Olena Jorge MD - 08/28/2024 3:05 PM EDT Labs done by outside provider documented in this encounter Plan of Treatment Upcoming Encounters Date Type Department Care Team (Late st Contact Info) Description 02/12/2025 3:30 PM EDT Clinical Support [facility] DIABETES/NUTRITION [address] [place] [address] Stephany Jc, VEDA [address] [place] [address] documented as of this encounter Procedures Procedure Name Priority Date/Time Associated Diagnosis Comments GGT Routine 08/28/2024 4:41 PM EDT HEPATIC FUNCTION PANEL Routine 08/28/2024 4:41 PM EDT HPV MRNA E6/E7 REFLEX TO HPV 16, 18/45 Routine 03/09/2024 12:00 AM EST documented in this encounter Results * Gamma Glutamyl Transferase (GGT) (08/28/2024 4:41 PM EDT) Gamma Glutamyl Transpeptidase 16 7 - 33 U/L [facility] 08/28/2024 4:41 PM EDT 08/28/2024 4:41 PM EDT us Generic External Data Provider LAB BLOOD ORDERAB LES Final Result Performing Organization Address [facility] de Phone Number [facility] [address] [place] [phone] * (ABNORMAL) Hepatic Function Panel (08/28/2024 4:41 PM EDT) Bilirubin, Total 0.2 0.0 - 1.0 mg/dL [facility] Bilirubin, Direct <0.2 0.0 - 0.5 mg/dL [facility] Aspartate Amino Transferase 25 5 - 31 U/L [facility] Alanine Aminotransferase 32(H) 0 - 31 U/L [facility] Total Protein 7.3 6.5 - 8.0 g/dL [facility] Albumin Level 4.3 3.5 - 5.0 g/dL [facility] Alkaline Phosphatase 97 39 - 117 U/L [facility] 08/28/2024 4:41 PM EDT 08/28/2024 4:41 PM EDT Generic External Data Provider LAB BLOOD ORDERAB LES Final Result Performing Organization Address [facility] Number [facility] [address] [place] [phone] * HPV mRNA E6/E7 w/Reflex to HPV Genotypes 16, 18/45 (03/09/2024 12:00 AM EST) us Historical Provider LAB CYTOLOGY ORDERABLES F inal Result Performing Organization Address [facility] Co de Phone Number [facility] [address] [place] [phone] documented in this encounter Visit Diagnoses Not on filedocumented in this encounter Additional Health Concerns Assessment Noted Time PHQ-9 Depression Total Score: 0 01/24/20 24 3:02 PM EDT documented as of this encounter Care Teams Small Business Banking Officer Relationship Specialty Start Date End Date Olena Ramsay MD [address] [place] [address] PCP - General Internal Medicine 10/07/22 documented as of this encounter
--- OUTSIDE RECORDS SUMMARY | 2025-01-26 10:33 | XMS_ITS | Encounter Summary ---
Author Organization [employer] Address [address] [place] [address] 7 [place] [address] Care Team Providers Care Solar Electric Installer Name Role Phone Olena Ramsay MD Primary Care Pro vider Encounter Details Date Type Department Care Team ([facility] st Contact Info) Description 04/01/2023 Orders Only [facility] MEDICINE [address] [place], [place] [phone] Marianne Ceils MD [address] [place] [address] Benign paroxysmal positional vertigo, unspecified laterality (Primary [...] Description 02/12/2025 3:30 PM EDT Clinical Support [facility] DIABETES/NUTRITION [address] [place], [place] [phone] Stephany Jc RD [address] [place], [place] [phone] documented as of this encounter Visit Diagnoses Diagnosis Benign paroxysmal positional vertigo, unspecified laterality- Primary documented in this encounter Additional Health Concerns Assessment Noted Time PHQ-9 Depression Total Score: 1 10/08/19 2:17 PM EDT documented as of this encounter Care Teams Solar Electric Installer Relationship Specialty Start Date End Date Olena Ramsay MD 230 [place], [place] [phone] PCP - General Internal Medicine 10/07/22 documented as of this encounter
--- OUTSIDE RECORDS SUMMARY | 2025-01-26 10:33 | XMS_ITS | Encounter Summary ---
Author Organization [employer] Address [address] [place] [address] Care Team Providers Care Workers Compensation Claims Examiner Name Role Phone Olena Ramsay MD Primary Care Pro vider Reason for Visit * Reason Onset Date Comments Results 06/08/2023 Encounter Details Date Type Department Care Team ([facility] st Contact Info) Description 06/08/2023 Telephone [facility] MEDICINE [address] [place], [place] [phone] Olena Ramsay MD [address] [place], [place] [phone] Results Social History Tobacco Use Types Packs/Day [...] CT scan Date when done: 05/16 Facility: [facility] Please contact pt at [phone] (Montenegrin) documented in this encounter Plan of Treatment Upcoming Encounters Date Type Department Care Team (Late st Contact Info) Description 02/12/2025 3:30 PM EDT Clinical Support [facility] DIABETES/NUTRITION [address] [place], [place] [phone] Stephany Jc RD [address] [place] [address] documented as of this encounter Visit Diagnoses Not on filedocumented in this encounter Additional Health Concerns Assessment Noted Time PHQ-9 Depression Total Score: 1 10/08/19 2:17 PM EDT documented as of this encounter Care Teams Workers Compensation Claims Examiner Relationship Specialty Start Date End Date Olena Ramsay MD 230 [place], [place] [phone] PCP - General Internal Medicine 10/07/22 documented as of this encounter
--- OUTSIDE RECORDS SUMMARY | 2025-01-26 10:33 | XMS_ITS | Encounter Summary ---
Author Organization [employer] Address [address] [facility] 7 [place] [address] Care Team Providers Care Title Investigator Name Role Phone Olena Ramsay MD Primary Care Pro vider Encounter Details Date Type Department Care Team (Latest Contact Info) Description 01/26/2025 Travel Social History Tobacco Use Types Packs/Day Years [...] AM EDT documented as of this encounter Functional Status * Over the past 2 weeks, how often have you been bothered by any of the following problems? Question Answer Date of Assessment Author Patient Health Questionnaire -2 Score 0 01/26/2025 9:09 AM JOSET Nita Metz MA * Little interest or pleasure in doing things Answer Date of Assessment Author Not at all 01/26/2025 9:09 AM Dipti Fine MA * Feeling down, depressed, or hopeless [...] of Assessment Author 0 01/26/2025 9:09 AM EDT Dipti Metz MA * Over the last 2 weeks, how often have you been bothered by any of the following problems? Question Answer Date of Assessment Author Feeling nervous, anxious, or on edge 0 01/26/2025 9:09 AM EDT Nita Metz MA Not being able to stop or co ntrol worrying 0 01/26/2025 9:09 AM JOSET Nita Metz MA Worrying too much about diff erent things 0 01/26/2025 9:09 AM JOSET Nita Metz MA Trouble relaxing 0 01/26/2025 9:09 AM JOSET Nita Nelson MA Being so restless that it is hard to sit still 0 01/26/2025 9:09 AM Nita Fine MA Becoming easily annoyed or irritable 0 01/26/2025 9:09 AM JOSET Nita Metz MA Feeling afraid as if somethi ng awful might happen 0 01/26/2025 9:09 AM Nita Fine MA SHIRA-7 Total Score 0 01/26/2025 9:09 AM Nita Fine MA documented as of this encounter Plan of Treatment Upcoming Encounters Date Type Department Care Team (Late st Contact Info) Description 02/12/2025 3:30 PM EDT Clinical Support [facility] DIABETES/NUTRITION [address] [place] [address] [place] [address] documented as of this encounter Visit Diagnoses Not on filedocumented in this encounter Additional Health Concerns Assessment Noted Time PHQ-9 Depression Total Score: 0 01/27/20 25 9:09 AM EDT documented as of this encounter Care Teams Title Investigator Relationship Specialty Start Date End Date Olena Ramsay MD [address] [place] [phone] PCP - General Internal Medicine 10/07/22 documented as of this encounter
--- OUTSIDE RECORDS SUMMARY | 2025-01-26 10:33 | XMS_ITS | Encounter Summary ---
Author Organization [employer] Address [address] [place] [phone] Care Team Providers Care Hearing Aid Assistant Name Role Phone Olena Ramsay MD Primary Care Pro vider Reason for Visit * Reason Onset Date Comments Appointment Request 10/30/2024 Encounter Details Date Type Department Care Team ([facility] st Contact Info) Description 10/30/2024 Telephone [facility] MEDICINE [address] [place], [place] [phone] Olena Ramsay MD [address] [place] [address] Appointment Request Social History Tobacco Use Types Packs/Day Years [...] encounter Miscellaneous Notes * Telephone Encounter - Juan Solomon - 10/30/2024 2:48 PM EDT Tc from pt requesting to reschedule today's machine gun mechanic appt. Please contact pt at [phone]. (Polish Speaker) documented in this encounter Plan of Treatment Upcoming Encounters Date Type Department Care Team (Late st Contact Info) Description 02/12/2025 3:30 PM EDT Clinical Support [facility] DIABETES/NUTRITION [address] [place] [address] [place] [address] documented as of this encounter Visit Diagnoses Not on filedocumented in this encounter Additional Health Concerns Assessment Noted Time PHQ-9 Depression Total Score: 0 01/24/20 24 3:02 PM EDT documented as of this encounter Care Teams Hearing Aid Assistant Relationship Specialty Start Date End Date Olena Ramsay MD [address] [place] [address] PCP - General Internal Medicine 10/07/22 documented as of this encounter
--- OUTSIDE RECORDS SUMMARY | 2025-01-26 10:33 | XMS_ITS | Encounter Summary ---
Author Organization [employer] Address [address] [place] [address] 7 [place] [address] Care Team Providers Care Him Specialists Name Role Phone Olena Ramsay MD Primary Care Pro vider Reason for Visit * Reason Onset Date Comments appt for OS 06/27/2024 Encounter Details Date Type Department Care Team ([facility] st Contact Info) Description 06/27/2024 Telephone [facility] ADULT DENTAL 230 [place] [address] Odell Link, DMD [address] [place] [address] appt for OS Social History Tobacco Use [...] Description 02/12/2025 3:30 PM EDT Clinical Support [facility] DIABETES/NUTRITION [address] [place] [address] [place] [address] documented as of this encounter Visit Diagnoses Not on filedocumented in this encounter Additional Health Concerns Assessment Noted Time PHQ-9 Depression Total Score: 0 01/24/20 24 3:02 PM EDT documented as of this encounter Care Teams Him Specialists Relationship Specialty Start Date End Date Olena Ramsay MD [address] [place] [address] PCP - General Internal Medicine 10/07/22 documented as of this encounter
--- OUTSIDE RECORDS SUMMARY | 2025-01-26 10:33 | XMS_ITS | Clinical Summary ---
Author Organization [employer] Address [address] [place] [address] 7 [place] [address] Care Team Providers Care Data Science And Iot Manager Name Role Phone Olena Ramsay MD Primary Care Pro vider Allergies Active Allergy Reactions Criticality Noted Date Comments Apple Fruit Extract 06/14/2024 Apple Juice Itching Low 02/03/2021 Other reaction(s): Unknown Keith Flavoring Agent (Non-Screening) Itching 10/07/2022 Prunus Persica Low 05/16/2023 Other reaction(s): Unknown Medications docusate sodium (Colace) 100 MG capsule TOME 1 C PSULA POR V A ORAL AL ACOSTARSE 5 Active Active Problems Problem Noted Date Diagnosed [...] call pt abnormal result -referred today to line appliance assembler Assessment & Plan (10/07/2022 5:30 PM EDT): [...] if ongoing irreg to f w her BANQUET ATTENDANT -TV/pelvic US 05/2022: There are some myometrial changes suggestive of adenomyosis. The right ovary contains a cyst as with apparent suggestive of a corpus luteal cyst. ---> pt w her BANQUET ATTENDANT x this Overweight (BMI 25.0-29.9) 10/07/2022 Assessment & Plan (11/05/2022 7:02 PM EDT): Advised pt to improve diet and exercise,discussed healthy life style -discussed abrasive water jet cutter operator referral -wants to hold on referral x now Assessment & Plan (10/07/2022 5:23 PM EDT): Advised pt to improve diet and exercise,discussed healthy life style -discussed abrasive water jet cutter operator referral -wants to hold on referral [...] Encounters Date Type Department Care Team Description 01/26/2025 9:00 AM EDT Office Visit [facility] [address] [place] [phone] Olena Ramsay MD Annual physical exam (Primary Dx); Encounter for immunization 01/26/2025 Travel 01/19/2025 Patient Outreach [facility] [address] [place] [phone] Olena Ramsay MD Pre-visit Planning (SDOH screening completed on 05/29/24) 01/08/2025 3:00 PM EDT Clinical Support [facility] DIABETES/NUTRITION [address] [place] [address] Over weight (Primary Dx) 01/08/2025 Travel 12/12/2024 Telephone [facility] [address] [facility] [place] [facility] [place] [address] Olena Ramsay MD Referral 12/08/2024 Telephone [facility] [address] [place] [address] [place] [address] Olena Ramsay MD Appointment Request 11/24/2024 9:00 AM EDT Clinical Support [facility] DIABETES/NUTRITION [address] [place] [address] Over weight (Primary Dx) 11/24/2024 Travel 10/31/2024 Telephone [facility] [place] [address] Olena Ramsay MD Appointment Request 10/30/[address] [address] Olena Ramsay MD Appointment Request 10/30/[address] [place] [address] Olena Ramsay MD recall sep. from Last 3 Months Immunizations Immunization Administration Dates Next Due HPV 9-Valent 06/16/2023,01/25/2023,11/26/2022 Hep B, adult 05/10/2023,12/07/2022,11/05/2022 Influenza injectable quadriv alent preservative free 02/26/2021 Influenza, seasonal, injecta ble, preservative free 01/26/2025,01/24/2024 MMR 10/13/2016 Pfizer Covid-19 Vaccine 12+ Bivalent [...] Mass Index 27.02 01/26/2025 9:08 AM EDT Plan of Treatment Upcoming Encounters Date Type Department Care Team (Late st Contact Info) Description 02/12/2025 3:30 PM EDT Clinical Support [facility] DIABETES/NUTRITION [address] [place] [address] Stephany Jc, RD [address] [place] [address] Health Maintenance Due Date Last Done Comments Dental Oral Exam 12/10/2023 06/10/2023, , 03/02/2017, Additional history exists Dental Prophylaxis 12/10/2023 06/10/2023, 0 09/26/2020, 06/08/2019, Additional history exists Dental X-Ray: Bitewings 06/11/2024 06/10/19, 09/26/2020, 03/10/2019, Additional history exists COVID-19 Vaccine ( season) 2025 10/07/2022, 10/24/2020, 10/03/2020 Family Planning (PISQ) 03/09/2025 03/09/2024 SDOH Screening 05/29/2025 05/29/2024 Alcohol/Substance Use Screening 08/09/2025 08/09/2024 Disability Screening 08/09/2025 08/09/2024 Depression Screening 01/26/2026 01/26/2025, 01/27/20 Tobacco Screening 01/26/2026 01/26/2025 Dental X-Ray: Full Mouth 06/11/2026 024, 02/25/2023, [...] 11/05/2022 HPV Vaccines Completed 06/16/2023, 01/02, 11/26/2022 HIV Screening Completed 08/03/2024, 060 10/2022, 04/10/2019 Hepatitis C Screening Completed 08/03/2024 , 10/07/2022, 04/10/2019 Influenza Vaccine Completed 01/26/2025, , 02/26/2021 HIB Vaccines Aged Out No longer eligi ble based on patient's age to complete this topic Hepatitis A Vaccines Aged Out No long er eligible based on patient's age to complete this topic IPV Vaccines Aged Out No longer eligi ble based on patient's age to complete this topic Meningococcal B Vaccine Aged Out No l onger eligible based on patient's age to complete this topic Meningococcal Vaccine Aged Out No tristian debbie eligible based on patient's age to complete this topic Pneumococcal Vaccine: Pediatrics (0 to 5 Years) and At-Risk Patients (6 to 49) Years Aged Out No longer eligible based on patient's age to complete this topic RSV under 20 months Aged Out No longe r eligible based on patient's age to complete this topic Rotavirus Vaccines Aged Out No longer eligible based on patient's age to complete this topic Procedures Procedure Name Priority Date/Time Associated Diagnosis Comments HEPATITIS C AB W/REFL TO HCV RNA, QN, PCR Routine 08/03/2024 8:38 AM EDT Annual physical exam HIV 1/2 ANTIGEN/ANTIBODY, FOURTH GENERATION W/RFL Routine 08/03/2024 8:38 AM EDT Annual physical exam HPV MRNA E6/E7 REFLEX TO HPV 16, [...] Recently Relevant to Health Maintenance Results * Hepatitis C Antibody with Reflex to HCV, RNA, Quantitative, Real-Time PCR (08/03/2024 8:38 AM EDT) Hepatitis C Antibody Nonreactive Nonreactive [facility] Comment:Antibodies to HCV no t detected; does not exclude early acuteHCV infection. Blood Venous blood specimen / Unknown 08/03/2024 8:38 AM EDT 08/03/2024 11:28 AM EDT us Olena Jorge MD LAB BLOOD ORDERAB LES Final Result Performing Organization Address [facility]/ZIP Co de Phone Number [facility] [address] [place] [phone] * HIV-1/2 Antigen and Antibodies, Fourth Generation, with Reflexes (08/03/2024 8:38 AM EDT) HIV AB/AG Nonreactive Nonreactive [facility] Comment:HIV-1 p24 Ag and/or HIV-1/HIV-2 Ab not detected.A test result that is nonreactive does not exclude thepossibility of exposure to or infection with HIV-1 and/orHIV-2. Nonreactive results in this assay for individualswith prior exposure to HIV-1 and/or HIV-2 may be due toantigen and antibody levels that are below the limit ofdetection of this assay.The [employer]Picker HIV Ag/Ab Combo assay result andsupplemental assay results should be interpreted inconjunction with the patient's clinical presentation,history and other laboratory results. If the results areinconsistent with clinical evidence, additional testing issuggested to confirm the result. Blood Venous blood specimen / Unknown 08/03/2024 8:38 AM EDT 08/03/2024 11:28 AM EDT us Olena Jorge MD LAB BLOOD ORDERAB LES Final Result Performing Organization Address City/[facility]/ZIP Co de Phone Number [facility] [address] [place] [phone] * HPV mRNA E6/E7 w/Reflex to HPV Genotypes 16, 18/45 (03/09/2024 12:00 AM EST) us Historical Provider MD LAB CYTOLOGY ORDERABLES F inal Result [facility] [address] [place] [phone] * Pap Smear (03/09/2024 12:00 AM EST) Swab Cervix uteri structure / Unknown 03/09/2024 03/10/2024 10:20 AM EST Narrative [facility] - 03/14/2024 10:28 AM EST ----- ------- Name: Laury Zapata Age/Sex: 28/F : 1995 Unit#: [id number] Attend Dr: Re03/09/24 Status: PRE REF Location: [facility] Disch: ----- ------- SPEC : [id number] RECD: 03/10/24-1019 STATUS: JÚNIOR SORENSEN NUM: [id number] ALISSA: 03/09/24- SUBM DR: CHELA LAWRENCE CNM ENTERED: 03/10/24-1023 SP TYPE: Pap Smr OTHR DR: ORDERED: Pap Smear Interpretation Satisfactory for evaluation. Negative for intraepithelial lesion or malignancy. Mild inflammation. No endocervical cells seen. HPV High Risk: Negative HPV Genotyping 16: Negative HPV Genotyping 18: Negative Clinical Information LMP: 02/04/2024 Previous PAP test: 2020, WNL Material Received ThinPrep-Cervical ----- ------- Signed (signature on file) HERNESTO Trejo (ASCP) 03/14/24 1028 ----- ------- END OF REPORT Chela Lawrence [facility] LAB CYTOLOGY ORDERABLES F inal Result [facility] [address] [place] [phone] [phone] from Last 3 Months or Most Recently Relevant to Health Maintenance Insurance [facility] 2 DENTAL-[facility] MEDICAID LIMITED ADULT DENTAL - HSN FULL (MEDICAID) Care Teams Data Science And Iot Manager Relationship Specialty Start Date End Date Olena Ramsay MD [address] [place] [phone] PCP - General Internal Medicine 10/07/22
--- OUTSIDE RECORDS SUMMARY | 2025-01-26 10:33 | XMS_ITS | Encounter Summary ---
Author Organization [employer] Address [address] [place] [phone] Care Team Providers Care Product Safety Professional Name Role Phone Olena Ramsay MD Primary Care Pro vider Reason for Visit * Reason Onset Date Comments Appointment Request 09/26/2024 Encounter Details Date Type Department Care Team ([facility] st Contact Info) Description 09/26/2024 Telephone [facility] MEDICINE [address] [place], [place] [phone] Olena Ramsay MD [address] [place] [address] Appointment Request Social History Tobacco Use Types [...] * Telephone Encounter - Nadya Montanez - 09/26/2024 12:33 PM EDT Tc from pt requesting to schedule appoint,ent with stitching department supervisor. Contact pt at [phone] documented in this encounter Plan of Treatment Upcoming Encounters Date Type Department Care Team (Late st Contact Info) Description 02/12/2025 3:30 PM EDT Clinical Support [facility] DIABETES/NUTRITION [address] [place], [place] [phone] Stephany J[address] [place] [address] documented as of this encounter Visit Diagnoses Not on filedocumented in this encounter Additional Health Concerns Assessment Noted Time PHQ-9 Depression Total Score: 0 01/24/20 24 3:02 PM EDT documented as of this encounter Care Teams Product Safety Professional Relationship Specialty Start Date End Date Olena Ramsay MD [address] [place] [address] PCP - General Internal Medicine 10/07/22 documented as of this encounter
--- OUTSIDE RECORDS SUMMARY | 2025-01-26 10:33 | XMS_ITS | Clinical Summary ---
Author Organization [facility] Address [address] [facility] [address] [place] [phone] Phone Care Team Providers Care Power Plant Operators Supervisor Name Role Phone Olena Ramsay MD Primary Care Pro vider Allergies Active Allergy Reactions Criticality Noted Date Comments Apple Unknown Low 05/16/2023 [place] Unknown Low 05/16/2023 Medications docusate sodium (COLACE) 100 MG capsule Take 1 capsule (100 mg total) by mouth 2 (two) times a day. 60 capsule 6 Active Additional Information Patient not taking.Reported on 05/25/2023 Hospital, Clinic, or Other Facility Administered Medication Ordered Dose Route Frequency Start Date End Date Status copper (PARAGARD) intrauterine device 1 each 1 each Utrn Every 10 years 04/20/2022 Active Active Problems Problem Noted Date Diagnosed Date S/P laparoscopic appendectomy 05/25/2023 IUD (intrauterine device) in place 06/22/2022 Overview (06/22/2022): Paragard placed in office following medical AB. Had an US for bleeding post-procedure, and IUD appears to be properly located. Heart murmur, systolic 01/25/2018 Resolved Problems Problem Noted Date Diagnosed Date Resolved Date Acute appendicitis with loca lized peritonitis, without perforation, abscess, or gangrene 05/17/2023 05/25/2023 Normal intrauterine , antepartum 08/06/2018 09/13/2018 Normal labor 08/06/2018 09/13/2018 Overview (08/06/2018): 08/06 10:15a: 6/100/-1 intact Uterine contractions during 08/05/2018 09/13/2018 Uterine size date discrepanc y , third trimester 07/13/2018 09/13/2018 Overview (08/05/2018): S<D by 4 cm at 37 weeks,u/s 07/25 said 23%ile but indices were 3-10%ile and birthweight of 2800 gram 40 weeks is 10%ile cardiac echogenic focus 03/21/2018 09/13/2018 Overview (04/21/2018): cardiac echogenic foci seen on anatomy scan. Normal NT normal and screen neg. Pt requesting further screening, normal Level 2 Encounter for supervision of normal first in first trimester 12/21/2017 09/13/2018 Overview (07/13/2018): CNM Childbirth Ed? Group PN care Declines Rh pos Tdap 06/22/2018 Hgb 10.6 GTT 60 GBS negative PPBC nothing, patient does not have a partner currently History of chlamydia infection 12/21/2017 04/20/2022 Overview (07/21/2018): Was treated earlier this summer and had SHASHANK the week of 12/13 - does not know results. Ordered 01/25/18- negative Rescreen not done at 28 weeks. Ordered at 37 weeks - neg Immunizations Immunization Administration Dates Next Due Influenza Quadrivalent Preservative Free IM 02/01 MMR 10/13/2016 Tdap 06/22/2018 Family History Relation Status Comments Brother Alive Daughter Alive Father Alive Mother Alive Sister Alive Social History Tobacco Use Types Packs/Day Years Used Date Smoking Tobacco: Never Smokeless Tobacco: Never Tobacco Cessation:Counseling Given: Not Answered Alcohol Use Standard Drinks/Week Comments No 0 [...] file Not on file Not on file Last Filed Vital Signs Vital Sign Reading Time Taken Comments Blood Pressure 98/71 05/25/2023 3:17 PM EST Pulse 78 05/25/2023 3:17 PM EST Temperature 36.6 C (97.8 F) 05/25/2023 3:17 PM EST Respiratory Rate 16 05/17/2023 3:51 PM EST Oxygen Saturation 99% 05/25/2023 3:17 PM EST Inhaled Oxygen Concentration - - Weight 66 kg (145 lb 9.6 oz) 05/17/2023 2:05 AM EST Height 157.5 cm (5' 2 ) 05/17/2023 2:05 AM EST Body Mass Index 26.63 05/17/2023 2:05 AM EST Plan of Treatment Health Maintenance Due Date Last Done Comments DEPRESSION SCREENING 2005 PAP SMEAR 2014 INFLUENZA VACCINE (#1) 2024 02/26/2021 COVID-19 VACCINE (3 2024-2 6 season) 2025 10/24/2020, 10/03/2020 Adult Td,Tdap Booster 06/22/2028 06/22/2018 IUD 04/20/2032 04/20/2022 HEPATITIS C SCREENING Completed 01/04/2018 HIV ONE-TIME SCREENING (18-6 5 YEARS) Completed 01/04/2018 SMOKING STATUS SCREENING (On ce After 26 Yrs) Completed 05/25/2023 HEPATITIS A VACCINES Aged Out No long er eligible based on patient's age to complete this topic HIB VACCINES Aged Out No longer eligi ble based on patient's age to complete this topic MENINGOCOCCAL VACCINES (ACWY) Aged Out No longer eligible based on patient's age to complete this topic MENINGOCOCCAL VACCINES (B) Aged Out N o longer eligible based on patient's age to complete this topic PNEUMOCOCCAL VACCINES (0-49 years) Aged Out No longer eligible b ased on patient's age to complete this topic Medical Devices Implanted Type Area Driver'S License Reviewing Officer Device Identifier Shelf Expiration Date Model / Serial / Lot Iud Implanted: (Quantity not on file) Intrauterine Device Procedures Procedure Name Priority Date/Time Associated Diagnosis Comments HEPATITIS C ANTIBODY, QUALITATIVE Routine 01/04/2018 11:31 AM EDT Encounter for supervision of normal first in first trimester from Last 3 Months or Most Recently Relevant to Health Maintenance Results * Hepatitis C antibody, qualitative (01/04/2018 11:31 AM EDT) HCV Negative Negative [facility] Comment: This is a screening test and should be confirmed with molecular testing Blood 01/04/2018 11:3 1 AM EDT 01/04/2018 11:39 AM EDT [facility] BLOOD ORDERABLES F inal Result [facility] [address] [place], [place] [phone] from Last 3 Months or Most Recently Relevant to Health Maintenance Insurance [employer]ENSE NON NSPG PCP DONAL FERNÁNDEZ [facility] NON NSPG PCP SILVER [employer] [facility] NON NSPG PCP [facility]IL[place] [employer] [facility] NON NSPG PCP SIL[place] [employer] [facility] NON NSPG PCP [place] [employer] [place] NON NSPG PCP SILVER CLARITY CONNE[employer]CARE [employer] NON NSPG PCP S[place] [employer] [employer] [place] NON NSPG PCP S[place] [employer] [facility] NON NSPG PCP [employer]AR[employer] CONNECTORCARE Advance Directives For more information, please contact: [phone] (9AM - 5PM [facility], Wednesday-Wednesday) Documents on File Type Date Recorded Patient Compounder Expl anation Healthcare Proxy 05/18/2023 4:22 PM * Full Code (Latest Code Status on File) Date Activated Date Inactivated Comments 05/17/2023 5:25 PM Question Answer Comments Code Status Confirmed With: Patient * Full Code (Presumed) Date Activated Date Inactivated Comments 08/06/2018 1:27 PM 08/08/2018 10:00 PM * Full Code (Presumed) Date Activated Date Inactivated Comments 08/06/2018 10:20 AM 08/06/2018 1:27 PM * Full Code (Presumed) Date Activated Date Inactivated Comments 08/05/2018 9:24 PM 08/06/2018 2:36 AM Care Teams Power Plant Operators Supervisor Relationship Specialty Start Date End Date Olena Ramsay MD [address] [place] [address] PCP - General Internal Medicine 05/25/23 Additional Source Comments The information contained in this document represents components of the legal health record. It is not the complete legal health record.[facility]
--- OUTSIDE RECORDS SUMMARY | 2025-01-26 10:33 | XMS_ITS | Encounter Summary ---
Author Organization [employer] Address [address] [place] [address] Care Team Providers Care Toddler Nanny Name Role Phone Olena Ramsay MD Primary Care Pro vider Reason for Visit * Reason Onset Date Comments Appointment Request 12/08/2024 Encounter Details Date Type Department Care Team ([facility] st Contact Info) Description 12/08/2024 Telephone [facility] MEDICINE [address] [place], [place] [phone] Olena Ramsay MD [address] [place] [address] Appointment Request Social History Tobacco Use Types [...] * Telephone Encounter - Juan Solomon - 12/08/2024 12:09 PM EDT Tc from pt requesting call back to reschedule hog room supervisor visit. Please contact pt at [phone]. (Arabic Speaker) documented in this encounter Plan of Treatment Upcoming Encounters Date Type Department Care Team (Late st Contact Info) Description 02/12/2025 3:30 PM EDT Clinical Support [facility] DIABETES/NUTRITION [address] [place] [address] [place] [address] documented as of this encounter Visit Diagnoses Not on filedocumented in this encounter Additional Health Concerns Assessment Noted Time PHQ-9 Depression Total Score: 0 01/24/20 24 3:02 PM EDT documented as of this encounter Care Teams Toddler Nanny Relationship Specialty Start Date End Date Olena Ramsay MD [address] [place] [address] PCP - General Internal Medicine 10/07/22 documented as of this encounter
--- OUTSIDE RECORDS SUMMARY | 2025-01-26 10:33 | XMS_ITS | Encounter Summary ---
Author Organization [employer] Address [address] [place] [address] Care Team Providers Care Personnel Counselor Name Role Phone Alexi Self MD Primary Care Provider Olena Buitrago MD Primary Care Pro vider Encounter Details Date Type Department Care Team (Late st Contact Info) Description 04/21/2022 [facility] Only [facility] [address] [place] [address] Karolyn Betancur, MALL MANAGER [address] [place] [address] Social History Tobacco Use Types Packs/Day Years [...] Description 02/12/2025 3:30 PM EDT Clinical Support [facility] DIABETES/NUTRITION [address] [place] [address] [place] [address] documented as of this encounter Visit Diagnoses Not on filedocumented in this encounter Care Teams Personnel Counselor Relationship Specialty Start Date End Date Alexi Self MD PCP - General Family Medicine 10/20/19 10/06/22 Olena Ramsay MD [address] [place] [phone] PCP - General Internal Medicine 10/07/22 documented as of this encounter
--- OUTSIDE RECORDS SUMMARY | 2025-01-26 10:33 | XMS_ITS | Encounter Summary ---
Author Organization [employer] Address [address] [place] [address] Care Team Providers Care Petroleum Analyst Name Role Phone Alexi Self MD Primary Care Provider Olena Buitrago MD Primary Care Pro vider Encounter Details Date Type Department Care Team (Latest Contact Info) Description 09/26/2020 Abstract [facility] CONVERSIONS Dental, Provider, DDS Social History [...] Description 02/12/2025 3:30 PM EDT Clinical Support [facility] DIABETES/NUTRITION [address] [place] [address] [place] [address] documented as of this encounter Visit Diagnoses Not on filedocumented in this encounter Care Teams Petroleum Analyst Relationship Specialty Start Date End Date Alexi Self MD PCP - General Family Medicine 10/20/19 10/06/22 Olena Ramsay MD [address] [place], [place] [phone] PCP - General Internal Medicine 10/07/22 documented as of this encounter
--- OUTSIDE RECORDS SUMMARY | 2025-01-26 10:33 | XMS_ITS | Encounter Summary ---
Author Organization [facility] Address [address] [employer] [address] [facility] [place] [address] [place] [address] Phone Care Team Providers Care Petroleum Supply Specialist Name Role Phone Allison Siegel MD Primary Care Provider + Olena Ramsay MD Primary Care Pro vider Encounter Details Date Type Department Care Team (Late st Contact Info) Description 05/17/2023 Procedure Pass OR Admitting Dept - Virtual Department [address] [place] [phone] Social History Tobacco Use Types Packs/Day Years [...] on file documented as of this encounter Plan of Treatment Not on file documented as of this encounter Visit Diagnoses Not on filedocumented in this encounter Care Teams Petroleum Supply Specialist Relationship Specialty Start Date End Date Allison Siegel MD [address] [place] [phone] PCP - General Internal Medicine 05/04/18 05/24/23 Olena Ramsay MD [address] [place] [phone] PCP - General Internal Medicine 05/25/23 documented as of this encounter Additional Source Comments The information contained in this document represents components of the legal health record. It is not the complete legal health record.[facility]
[2025-01-26 11:26] LABS: MANUAL DIFF FLAG NO
[2025-01-26 11:40] LABS: Hematocrit 39.3 % (37.0-47.0); Hemoglobin 13.4 g/dl (12.0-16.0); Imm Gran Abs Auto 0.03 X10*3/uL (0.00-0.03); Imm Gran Pct Auto 0.4 % (0.0-0.4); Lymphocytes Absolute Auto 1.9 X10*3/uL (1.2-4.9); Mean Corpuscular HGB Conc 34.1 g/dl (31.0-35.0); Mean Corpuscular Hemoglobin 31.4 pg (27.0-33.0); Mean Corpuscular Volume 92.0 fL (80.0-98.0); NRBC Abs Auto 0.000 X10*3/uL (0.0-0.012); NRBC Pct Auto 0.0 /100WBC (0.0-0.2); Platelet Count 293 X10*3/uL (160-400); Red Blood Count 4.27 X10*6/uL (4.20-5.50); White Blood Count 7.6 X10*3/uL (4.8-10.8)
[2025-01-26 11:55] LABS: Total Hemoglobin (HGBA1C) 3463.3405 umol/L
[2025-01-26 12:17] LABS: Alanine Aminotransferase 31 U/L (0-31); Albumin Level 4.6 g/dL (3.5-5.0); Alkaline Phosphatase 75 U/L (39-117); Anion Gap 8 (12-20); Aspartate Amino Transferase 26 U/L (5-31); Blood Urea Nitrogen 13 mg/dL (9-16); Calcium 9.0 mg/dL (8.4-10.2); Carbon Dioxide 25 mmol/L (22-29); Chloride 111 mmol/L (96-108); Cholesterol 120 mg/dL (<200); Estimated Glomerular Filt Rate > 60; HDL Cholesterol 37 mg/dL (>40); Potassium 3.9 mmol/L (3.3-5.1); Sodium 140 mmol/L (135-145); Total Protein 7.3 g/dL (6.5-8.0); Triglycerides 55 mg/dL (<150)
[2025-01-26 12:23] LABS: HBsAGNum1 0.30 S/CO (0.00-0.99); HIV Num 1 0.07 S/CO (0.00-0.99); Hepatitis B Surface Antigen Negative (Negative); ~HepC Num1 0.08 S/CO (0.00-0.79); ~Hepatitis C Antibody Nonreactive (Nonreactive)
[2025-01-26 12:23] LABS: Syphilis Screen Nonreactive (Nonreactive)
[2025-01-26 12:40] LABS: CT PCR Urine NOT DETECTED (Not Detect.); NG PCR Urine NOT DETECTED (Not Detect.)
== END 2025-01-26 09:37 | disposition home or self-care (01) ==
LOC: HO.HHCL 09:36
PROVIDERS: PCP Student in an Organized Health Care Education/Training Program; Visit Provider Student in an Organized Health Care Education/Training Program
DX: Z00.00 Encounter for general adult medical examination without abnormal findings (principal); Z11.8 Encounter for screening for other infectious and parasitic diseases; Z11.4 Encounter for screening for human immunodeficiency virus [HIV]; Z11.59 Encounter for screening for other viral diseases; R74.01 Elevation of levels of liver transaminase levels
CPT/HCPCS: 80053; 80061; 82248; 83036; 84443; 85025; 86780; 86803; 87340; 87389; 87491; 87591